=== PATIENT | female | born 1955 | race Caucasian/White ===

== ENCOUNTER 2019-05-02 10:59 | Outpatient (CLI) | payer SELFPAY ==
--- NOTE | 2019-05-02 10:56 | DI.RAD_ITS ---
SYMPTOM/DIAGNOSIS: PAIN RIGHT KNEE: A frontal image of the right knee reveals medial and lateral tibiofemoral joint space narrowing and periarticular hypertrophic spurring. The findings are consistent with severe DJD.
== END 2019-05-02 11:19 ==
PROVIDERS: Visit Provider Orthopaedic Surgery
DX: M17.11 Unilateral primary osteoarthritis, right knee (principal); M25.561 Pain in right knee
CPT/HCPCS: 73560

== ENCOUNTER → 2019-06-27 09:51 | Outpatient (BNVA) | payer MEDICARE, SELFPAY | PROVIDERS: PCP Internal Medicine; Visit Provider Orthopaedic Surgery | DX: M25.561 Pain in right knee (principal); M17.11 Unilateral primary osteoarthritis, right knee; Z98.890 Other specified postprocedural states | CPT/HCPCS: 99213 ==

== ENCOUNTER → 2019-07-25 12:58 | Outpatient (CLI) | payer MEDICARE, SELFPAY ==
--- NOTE | 2019-07-25 14:42 | W.PREOPHP ---
Assessment and Plan Assessment and plan (1) Primary osteoarthritis of right knee: Status: Chronic Assessment and plan: Plan: Patient met with [employer] who ordered an EKG. Patient does not have any current cardiac symptoms nor does she have any significant cardiac history. She does have an elevated BMI of [address] Singh's last note. However, Dr. Singh has previously had a through discussion with patient regarding her weight and increased risk of infection. Despite this risk patient wishes to proceed with surgery. Educated patient on surgery covering surgical technique via models, recovery process, benefits and risks including but not limited to risk of infection, blood clot, damage to soft tissue/blood vessels/nerves in detail. After discussion patient gives verbal understanding of risks and elects to proceed with scheduling surgery. Patient had opportunity to have questions answered to their satisfaction. They will contact office if issues arise. Patient will continue to be scheduled for right TKA with Dr. Singh. History of Present Illness Narrative: Ms. Hernández is a 64-year-old female who presents to clinic for pre-operative visit regarding scheduled right TKA with Dr. Singh. She is status post left TKA done at [facility] around 2008. Reports history of a fall last January which caused more severe onset of right knee pain. Pain is located over the lateral aspect of the knee and when severe feels like it radiates to her ankle. States that intensity of pain varies slightly based on her activity. Reports difficulty even doing housework. Has tried Tylenol and Ibuprofen which only helps to reduce the intensity of her pain. Occasionally the pain will be so severe she has difficulty sleeping. Reports the knee will also give out even when walking on flat surfaces. Denies any recent falls or injuries directly to her knee. She received an intraarticular injection which provided less than one month of pain relief. Due to her continued symptoms she was offered TKA and elected to proceed. Pertinent Surgical Information Reports severe nausea, vomiting and diarrhea after receiving IV morphine following one of her surgeries. In addition she experienced hallucinations with percocet approximately 40 years ago. Denies any issues with her medications following her right TKA. Denies past medical history of: Hypertension, stroke, cardiac issues, angina, asthma, COPD, sleep apnea, renal issues, liver issues, hepatitis, known gastrointestinal ulcers, hyperlipidemia, bleeding disorders, seizures, migraines, anxiety, depression, diabetes, autoimmune disorders Denies prior complications from surgery or anesthesia. Review of Systems Constitutional Constitutional: Denies fever(s), Denies frequent falls and Denies headache(s) Eyes Eyes: Denies change in vision ENT Ears, Nose, Mouth, and Throat: Denies dizziness, Denies ear discharge, Denies headache(s), Denies epistaxis, Denies nasal discharge and Denies sore throat Cardiovascular Cardiovascular: Denies chest pain, Denies rapid heart rate, Denies irregular heart rhythm, Denies lightheadedness, Denies palpitations, Denies dyspnea, Reports dyspnea on exertion (only on stairs or going uphills for years; denies any recent change ), Denies orthopnea, Denies paroxysmal nocturnal dyspnea and Denies slow heart rate Respiratory Respiratory: Denies cough, Denies dyspnea, Reports dyspnea on exertion (only on stairs or going uphills for years; denies any recent change ) and Denies wheezing Gastrointestinal Gastrointestinal: Denies abdominal pain, Denies melena, Denies hematochezia, Denies constipation, Denies diarrhea, Denies nausea and Denies vomiting Genitourinary Genitourinary: Denies hematuria, Denies dysuria and Denies urinary urgency Musculoskeletal Musculoskeletal: Reports as per HPI, Denies numbness and Denies tingling Neurologic Neurologic: Denies dizziness, Denies frequent falls, Denies headache(s), Denies numbness and Denies tingling Psychiatric Psychiatric: Denies anxiety and Denies depression Endocrine Endocrine: Denies palpitations Allergic/Immunologic Allergic/Immunologic: Denies wheezing [facility] Medical History (Updated 07/25/19 @ 14:53 by Dorothy Palmer) Cellulitis of left leg (Inactive) Hx of gastroesophageal reflux (GERD) (Acute) Streptococcal bacteremia (Inactive) Surgical History (Updated 07/25/19 @ 13:28 by Danelle Ham RN) History of arthroplasty of left knee (Acute) History of open reduction and internal fixation (ORIF) procedure (Acute) Right wrist Hx of cholecystectomy (Chronic) Hx of hysterectomy (Chronic) Hx of thyroidectomy (Chronic) Hx of vein stripping (Acute) Family History (Updated 07/25/19 @ 14:54 by Dorothy Palmer) Father Stroke Mother No problems noted. Social History (Updated 07/25/19 @ 14:55 by Dorothy Palmer) Smoking/Tobacco Use Status: Never Drug use: Never Do you feel safe in your relationship?: Yes Meds Home Medications and Allergies Home Medications Medication Instructions Recorded Confirmed Type multivitamin [Daily Multi-Vitamin] 1 ea PO DAILY NS 02/15/13 07/25/19 History naproxen sodium [Aleve] 220 mg PO PRN NS 02/15/13 07/25/19 History levothyroxine 200 mcg PO DAILY tab-cap 04/28/15 07/25/19 History omeprazole 20 mg PO DAILY 06/22/15 07/25/19 History magnesium oxide 400 mg PO DAILY #30 tab 08/13/16 07/25/19 Rx acetaminophen [Mapap Extra 1,000 mg PO PRN PRN 07/11/17 07/25/19 History Strength] cholecalciferol (vitamin D3) 1,000 1,000 unit PO DAILY 05/02/19 07/25/19 History unit capsule ibuprofen 200 mg capsule 800 mg PO Q6H PRN cap 06/27/19 07/25/19 History Allergies Allergy/AdvReac Type Severity Reaction Status Date / Time Sulfa (Sulfonamide Allergy Mild rash Unverified 07/25/19 14:55 Antibiotics) morphine AdvReac Severe nausea, Unverified 07/25/19 14:55 vomiting diarrhea Exam Const General: cooperative and no acute distress [facility] Head: normal to inspection, normocephalic and atraumatic Ears: external ears normal General nose exam: external nose normal and no nasal discharge Face and sinus: face symmetric Mouth: oral mucosae normal, lip normal, tongue normal and moist mucous membranes Teeth and gingiva: poor dentition (broken front tooth) Throat: posterior oropharynx normal Eyes General: appearance normal, both eyes and all related structures Pupils: PERRL EOM: EOM intact bilaterally Neck Neck: trachea midline Carotids: normal carotid upstroke Lymphatic: no lymphadenopathy noted Resp Effort & Inspection: normal respiratory effort and able to speak in complete sentences Auscultation: clear to auscultation bilaterally, no rales, no rhonchi and no wheezes Cardio Heart Sounds: S1 normal, S2 normal and no murmurs Pulses: radial pulses present bilaterally Skin General skin exam: no rashes or lesions noted Results Labs Result diagrams: 07/25/19 14:31
[2019-07-25 14:45] LABS: Abs Immature Grans 0.02 k/cumm (0.0-0.09); Absolute Basophil Count 0.02 k/cumm (0.0-0.2); Absolute Lymphocyte Count 1.69 k/cumm (1.2-3.4); Absolute Monocyte Count 0.44 k/cumm (0.11-0.7); Absolute Neutrophil Count 4.69 k/cumm (1.2-6.7); Basophils % 0.3; Eosinophils % 1.4; HCT 40.1 % (36.0-46.0); HGB 12.8 g/dL (12.0-15.5); Immature Grans % 0.3; Lymphocytes % 24.3; Mean Corp. HGB Concentration 31.9 g/dL (32.0-36.0); Mean Corpuscular Hemoglobin 28.8 pg (27.0-33.0); Mean Corpuscular Volume 90.3 fL (80-95); Mean Platelet Volume 9.6 fL (8.0-11.0); Monocytes % 6.3; Neutrophils % 67.4; Platelet Count 208 x1000/uL (130-400); RBC 4.44 m/cumm (4.00-5.20); RBC Distribution Width 14.9 % (11.7-14.6); White Blood Cell Count 6.96 k/cumm (4.4-10.8)
== END ==
PROVIDERS: PCP Internal Medicine; Visit Provider Orthopaedic Surgery
DX: M25.561 Pain in right knee (principal); M16.11 Unilateral primary osteoarthritis, right hip; Z01.812 Encounter for preprocedural laboratory examination; Z01.818 Encounter for other preprocedural examination; M17.11 Unilateral primary osteoarthritis, right knee
CPT/HCPCS: 36415; NC; 85025; 93005; 93010

== ENCOUNTER 2019-07-29 05:59 | Inpatient (IN) | payer MEDICARE, SELFPAY ==
[2019-07-25 13:04] VITALS: BP 147/84; PULSE 82; RESP 18; TEMP 36.6; O2SAT 93
[2019-07-25 13:36] VITALS: BP 147/84; PULSE 82; RESP 18; TEMP 36.6; O2SAT 93
[2019-07-29] VITALS (13 sets, daily range): BP systolic 108–153; BP diastolic 52–89; PULSE 57–87; RESP 12–20; TEMP 35.9–36.9; O2SAT 94–99
[2019-07-29] MEDS: Lactated Ringers 1,000 ML 80 ML IV ×2 (06:39→10:19)
[2019-07-29] MEDS: Bupivacaine LIPOSOME/PF 133 MG/10 ML VIAL IJ (07:22)
[2019-07-29] MEDS: Bupivacaine 0.5% Pres-Free 30 ML VIAL (07:22)
[2019-07-29] MEDS: ceFAZolin 2 GM/50 ML BAG IVPB (07:48)
[2019-07-29] MEDS: Hydrogen Peroxide 3% 480 ML BTL (09:29)
[2019-07-29] MEDS: fentaNYL 100 MCG/2 ML VIAL IVP ×2 (11:17→11:32)
--- NOTE | 2019-07-29 11:19 | DI.RAD_ITS ---
SYMPTOMS/DIAGNOSIS: CHECK TOTAL KNEE COMPONENTS RIGHT KNEE: The post operative examination reveals a right TKA. The components of which are in excellent position.
[2019-07-29] MEDS: HYDROcodone 5/Acetaminophen 325 TAB PO (12:23)
[2019-07-29] MEDS: oxyCODONE-CR 10 MG TABCR PO ×2 (12:24→23:42)
[2019-07-29] MEDS: POTASSIUM CHLORIDE/0.9% NACL 1,000 ML 125 MEQ IV ×2 (12:24→21:26)
[2019-07-29] MEDS: ceFAZolin 2,000 MG in Normal Saline 100 ML 200 MG IVPB ×3 (12:45→23:42)
[2019-07-29] MEDS: Docusate Sodium 100 MG CAP PO ×2 (14:19→20:00)
--- NOTE | 2019-07-29 15:13 | ROE_ITS ---
DATE OF PROCEDURE: July 29, 2019 PREOPERATIVE DIAGNOSIS: Osteoarthritis right knee. POSTOPERATIVE: Osteoarthritis right knee. PROCEDURE: Right total knee arthroplasty. COMPONENTS USED: 1. Size 2 posterior cruciate-retaining femoral component. 2. Size 2 tibial tray. 3. Size 2, 10 mm rotating platform curved insert. The patella was not resurfaced. ANESTHESIA: General, Aixa Porter CRNA SURGEON: Narayan Singh M.D. IP ARCHITECT: Tre Limon INDICATIONS: This is a 64-year-old white female with a BMI of 53 with endstage osteoarthritis of her right knee. She has reached the point where she is incapacitated with her activities of daily livin g because of pain from her right knee. She has previously undergone a successful left total knee rep lacement some ten years ago. Total knee replacement was recommended at this point because of failure of conservative treatment to control her pain. The risks and complications of the procedure were ex plained to the patient in detail preoperatively. PROCEDURE: The patient was taken to the Operating Room on 07/29/19. She was placed supine on the ope rating table and a general anesthetic was administered. Because of obesity, a femoral nerve block wa s not capable of being done. She instead had an adductor canal block. A proximal tourniquet was celso lied and the right lower extremity was then prepped and draped free in the usual sterile fashion. I made an anterior midline incision beginning at the tibial tubercle and extending 4 to 5 inches prox imal of the patella. Because of a combination of difficulty getting her blood pressure under control and the tourniquet, there was extensive venous back-bleeding. I therefore deflated the tourniquet a nd proceeded for the rest of the case without the tourniquet. The subcutaneous bleeders were cauteri zed. A medial parapatellar capsular incision was made. The patella was mobilized and everted and th e knee was hyperflexed. Medial and lateral meniscectomies were performed. The ACL was sacrificed. The distal femur was resected using intramedullary alignment guides and jigs. The patient was found to require a size 2 femoral component. Holes were drilled through the trial femoral component for th e lugs of the actual femoral component. The proximal tibia was then resected using external alignmen t guides and jigs. The posterior cruciate ligament was recessed. Using the guide for the tibial tra y, the keel and stem of the tibial tray were then reamed and punched out in proper rotation alignment . Peripheral osteophytes were then resected from the patella. I thought that the articular cartilag e of the patella was in fairly good condition and did not require resurfacing. At this point the proximal tibia was prepared for cementing with pulse irrigation lavage of saline so lution and drying with peroxide-soaked strip sponges. One batch of gentamicin-impregnated methylmeth acrylate was hand-packed onto the proximal tibia and then packed onto the posterior recess on the tib ial tray. The tibial tray was inserted and packed into place with the impactor and mallet. It was f urther pressurized using the trial components and extending the knee. Excess cement was trimmed from the margins of the tibial component while the cement was still soft. When the methylmethacrylate rodgers d cured, the trial components were removed. The distal femur was prepared for cementing with pulse i rrigation lavage of saline solution and drying with peroxide-soaked strip sponges. Another batch of gentamicin-impregnated methylmethacrylate was vacuum-mixed and hand-packed onto the prepared distal f emur and was pressurized by inserting the femoral component with the impactor and mallet and then put ting in the trial insert and extending the knee. Excess cement was trimmed from the margins of the f emoral component while the cement was still soft using the plastic cement removal tool. When the sec ond batch of methylmethacrylate had cured, the trial insert was removed. The posterior recesses were checked and any bone or cement debris was removed at this point. Using the trial tibial inserts, it was determined that a 10 mm insert allowed full extension and provided excellent varus/valgus stabil ity from 0 to 90 degrees of flexion. The actual rotating platform size 2, 10 mm thick insert was the n placed on the tibial tray and then reduced onto the femoral condyles. Patella tracking was checked using the [id number]-thumb and the patella tracked anatomically. The right knee was flexed over sof t goods and closure was begun. The knee joint capsule was infiltrated with 0.5% Marcaine with an epinephrine solution. I then used 0.5% Marcaine with an epinephrine solution to infiltrate the subcu. The quadriceps tendon and medial capsule of the knee were repaired with interrupted [id number] sutures of #1 Vicryl suture mater ial. The wound and knee were irrigated with Betadine and saline solution prior to closure. The Beta dine was allowed to stay for a minute before suctioning. The subcu was approximated with interrupted #2-0 Vicryl sutures and the skin edges were approximated, without tension, using [id number] s utures, interrupted, of #3-0 Nylon suture material. The knee was dressed with Xeroform gauze, ster ile gauze 4x4's, ABD pads and wrapped with a Kerlix bandage and then a Rocha compressive dressing was applied from toes to groin. A mobilizer splint was placed over the compressive dressing to maintain the knee in extension. One gram of tranexamic acid was administered IV prior to inflating the tourn iquet and then a second gram of tranexamic acid was given IV when the skin had been closed. The dirk ent's anesthesia was reversed without complications. She was discharged to the recovery room. Estim ated blood loss 300 cc's. She experienced no intraoperative complications.
[2019-07-29] MEDS: Acetaminophen 325 MG TAB 650 MG PO (15:49)
[2019-07-29] MEDS: Ketorolac 30 MG/ML VIAL IVP ×2 (15:50→21:26)
--- NOTE | 2019-07-29 18:00 | IN_ITS ---
Date of service: 07/29/19 Time of Service: 15:01 PT Notes Inpatient Physical Therapy Evaluation Date: 07/29/2019 Referring Doctor: Narayan Singh MD PT Orders: PT CONSULT: Eval/Treat Precautions: Fall. Standard. WBAT on R LE. Patient Profile/Admitting Diagnosis: Patient is a 64-year-old female with primary unilateral osteoarthritis of right knee and is status post right total knee arthroplasty on postoperative day 0. PMHX: Medical History (Updated 07/25/19 @ 14:53 by Dorothy Palmer) Cellulitis of left leg (Inactive) Hx of gastroesophageal reflux (GERD) (Acute) Streptococcal bacteremia (Inactive) Surgical History (Updated 07/25/19 @ 13:28 by Danelle Ham RN) History of arthroplasty of left knee (Acute) History of open reduction and internal fixation (ORIF) procedure (Acute) Right wrist Hx of cholecystectomy (Chronic) Hx of hysterectomy (Chronic) Hx of thyroidectomy (Chronic) Hx of vein stripping (Acute) Social History/Home Situation: Patient lives with in a one-floor house with 4 steps to enter and a rail on the R going up. Her granddaughter who lives with her does the grocery shopping and helps with director of recreation therapy. 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 She is independent with all aspect sof ADLs without the need for an assistive ambulatory device nor adaptive equipment. Equipment Owned/DME: [employer] Subjective: Patient is agreeable to a PT consult. She reports signficant pain on surgical site that worsens with weight bearing and movement. She denies headache and chest pain but did report being nauseous and vomitted x2 during mobility assessment. She had a difficult time backing up onto bed and had to be assisted by this PT, student PT, and nurse for sit to supine. Objective: General Observation: Patient seen resting in bed. IV in the left UE. Pretty catheter in place. Rocha stress dressing in place. Knee immobilizer in place. Mental Status: Alert and oriented as to person, place, time, and purpose Pain: 7/10 at rest, 10/10 with movement Vital Signs: Patient tested negative for orthostatic hypotension. ROM: Right Upper Extremity: Shoulder Flexion WFL. Shoulder abduction WFL. Elbow flexion WFL. Wrist flexion WFL. Opening and closing of hand WFL. Left Upper Extremity: Shoulder Flexion WFL. Shoulder abduction WFL. Elbow flexion WFL. Wrist flexion WFL. Opening and closing of hand WFL. Right Lower Extremity: Hip flexion unable to perform due to pain and added weight of Rocha dressing and knee immobilizer. Patient unable to slide right LE sideways due to pain. Knee flexion not tested due to presence of Rocha dressing, DWAINE wraps, and knee immobilizer. Ankle dorsiflexion WFL. Ankle plantarflexion WFL. Left Lower Extremity: Hip flexion WFL. Hip abduction WFL. Knee flexion WFL. Ankle dorsiflexion WFL. Ankle plantarflexion WFL. Strength: Right Upper Extremity: Shoulder flexors 5/5. Shoulder abductors 5/5. Elbow flexors 5/5. Elbow extensors 4/5. Service Engineer strong. Left Upper Extremity: Shoulder flexors 5/5. Shoulder abductors 5/5. Elbow flexors 5/5. Elbow extensors 4/5. Service Engineer strong. Right Lower Extremity: Hip flexors 1/5. Hip abductors 1/5. Knee flexors 1/5. Knee extensors 1/5. Ankle dorsiflexors 4/5. Ankle plantarflexors 4/5. Left Lower Extremity:Hip flexors 5/5. Hip abductors 5/5. Knee flexors 5/5. Knee extensors 5/5. Ankle dorsiflexors 5/5. Ankle plantarflexors 5/5. Sensation: Intact as to pain and pressure on bilateral lower extremities. Bed Mobility/Transfers: Rolling minimal assist Supine to sit minimal assist Sit to supine minimal assist Sit to stand moderate assist Stand to sit moderate assist Bed to chair moderate assist Chair to bed maximum assist Gait: Patient was only able to tolerate 6 steps from bedside forward using FWW with WBAT on right requiring minimal assist of 2 with significant pain reported at 10/10 on the right knee. Absent knee flexion on right due to edema but knee immobilizer and unable to extend right hip due to pain Balance: Static Sitting: Good Dynamic Sitting: Fair Static Standing: Fair Dynamic Standing: Poor Special Tests: Mobility Limitations Standardized Measure [facility] AM-PAC 6 clicks Basic Mobility Inpatient Short Form: Raw Score: 11 CMS Score: 73% deficit Informed Consent/Education: Patient instructed in purpose of PT consult and plan of care. Assessment: Patient is a 64-year-old female with premorbid independent mobility level status post right total knee arthroplasty on postoperative day 0. She currently is limited by pain. Sensation to her right LE intact. Strength and range of motion assessed as above. Patient presents with clinical signs and symptoms consistent with current/admitting diagnoses that have resulted to mobility limitations, gait instability, generalized weakness, and impairment of motor control as demonstrated by the following impairment level findings: 1. Decreased strength to R LE major muscle groups 2. Impaired sitting/standing balance 3. Impaired activity tolerance 4. Limitation of joint range of motion in right hip and right knee joints Impairments are contributing to the following functional limitations: 1. Dependent bed mobility skills 2. Increased dependence with transfers 3. Inability to safely ambulate without assistive device and physical assistance 4. Increase completion time for mobility ADL performance 5. Increased fall risk 6. Inability to negotiate steps alone safely Patient is assessed as a 68541 moderate complexity based on the following: History: Significant for left TKA and right wrist ORIF Examination: Demonstrable impairment in strength, balance, and range of motion with underlying impairments and functional limitations as documented above Presentation:Evolving Decision Makin moderate complexity Goals: Goals X1 week 1. Supine-Sit independent 2. Sit-Supine independent 3. Sit-Stand independent 4. Stand-Sit independent 5. Bed-Chair independent 6. Chair-Bed independent 7. Independent gait on level surface with use of least restrictive device for at least 300 feet without report of pain nor dyspnea 8. Independent stair negotiation while holding onto bilateral rails for at least 4 steps without report of pain nor dyspnea 9. Independent with home exercise program 10. Good static and dynamic standing balance/tolerance Plan of Care/Treatment Plan: 1-2x/day, 7 days/week x 1 week. Plan of care has been reviewed with the SURGICAL DENTAL ASSISTANT providing the service under Physical Therapy direction. Initiate Physical Therapy intervention for strengthening, bed mobility, transfers, gait, stairs, balance training, use of assistive device. DISCHARGE RECOMMENDATIONS: Patient will benefit from fci facility placement in order to progress mobility level, strength, and balance in preparation for a safe discharge to home. Patient will benefit from using FWW in order to maximize functional independence at discharge destination. TREATMENT CODE/TIME: 38446 x 30 minutes, 17704 x 21 minutes beginning at 15:01 PM. Thank you very much for this referral. Tierra Prather PT, DPT, CLT [facility]
[2019-07-29] MEDS: Normal Saline Flush 10 ML SYR IVP ×2 (21:27→23:42)
[2019-07-30 03:27] VITALS: BP 108/58; PULSE 78; RESP 19; TEMP 37.3; O2SAT 94
[2019-07-30] MEDS: Ketorolac 30 MG/ML VIAL IVP ×4 (03:37→21:36)
[2019-07-30] MEDS: Normal Saline Flush 10 ML SYR IVP ×4 (03:38→21:37)
[2019-07-30] MEDS: ceFAZolin 2,000 MG in Normal Saline 100 ML 200 MG IVPB (06:22)
[2019-07-30] MEDS: Levothyroxine 200 MCG TAB PO (06:22)
[2019-07-30 07:05] LABS: HCT 33.5 % (36.0-46.0); HGB 10.5 g/dL (12.0-15.5); Mean Corp. HGB Concentration 31.3 g/dL (32.0-36.0); Mean Corpuscular Hemoglobin 28.8 pg (27.0-33.0); Mean Corpuscular Volume 91.8 fL (80-95); Mean Platelet Volume 10.3 fL (8.0-11.0); Platelet Count 187 x1000/uL (130-400); RBC 3.65 m/cumm (4.00-5.20); RBC Distribution Width 14.9 % (11.7-14.6)
[2019-07-30 07:55] VITALS: BP 99/63; PULSE 72; RESP 18; TEMP 36.7; O2SAT 96
[2019-07-30] MEDS: Cholecalciferol (Vitamin D3) 1,000 UNIT TAB 1000 UNITS PO (08:24)
[2019-07-30] MEDS: Acetaminophen 325 MG TAB 650 MG PO ×2 (08:24→18:10)
[2019-07-30] MEDS: Pantoprazole 40 MG TABCR PO (08:24)
[2019-07-30] MEDS: Magnesium Oxide 400 MG TAB PO (08:24)
[2019-07-30] MEDS: HYDROcodone 5/Acetaminophen 325 TAB PO ×2 (08:24→15:00)
[2019-07-30] MEDS: Multivitamin w/Minerals TAB 1 TAB PO (08:24)
[2019-07-30] MEDS: Enoxaparin 40 MG/0.4 ML SYR SC (11:25)
[2019-07-30] MEDS: oxyCODONE-CR 10 MG TABCR PO (11:25)
[2019-07-30 11:38] VITALS: BP 104/64; PULSE 71; RESP 16; TEMP 37.6; O2SAT 94
[2019-07-30] MEDS: POTASSIUM CHLORIDE/0.9% NACL 1,000 ML 60 MEQ IV (12:06)
--- NOTE | 2019-07-30 12:33 | PT.INTREAT ---
Date of service: 07/30/19 Time of Service: 12:33 PT Notes Inpatient Physical Therapy Treatment Note [facility] Date: 07/30/19 PRECAUTIONS: Fall, WBAT R SUBJECTIVE: Sofia states that she was having some discomfort from the knee immobilizer while sitting up in the chair. OBJECTIVE: PAIN: Patient c/o superior patellar pain with ther ex and gait training BED MOBILITY/TRANSFERS Supine-sit: S with HOB flat Sit-stand: SBA Stand-sit: SBA GAIT Assistive Device: FWW Weight bearing: WBAT R Assist: CGA Distance: 10' x2 in a.m.; 20' in p.m. Deviation: Standing rest x3 in a.m. and standing rest x1 in p.m.; increased knee pain and decreased step length and height in both a.m. and p.m. THEREX: Patient completed a LE strengthening and stabilization program, in a supine position in a.m. and long sit position in p.m. with Rocha dressing intact, as per flow sheet. She requires assist for SLR, hip abduction, and heel slide exercises in a.m and assist for SLR in p.m. ASSESSMENT: Patient tolerated session with complaints of R knee pain with ther ex and gait training. Patient was able to tolerate a progression in gait distance with FWW support and CGA, although requires frequent standing rests due to increased knee pain. Patient would benefit from continued gait and transfer training for improved mobility and activity tolerance. PLAN: Continue with PT's POC TREATMENT CODE/TIME: Session 1: 30 minutes; 16152, 52399 Session 2: 25 minutes; 52542, [id number]
--- NOTE | 2019-07-30 14:13 | INITIAL_ITS ---
- If Service Date Differs Date of service: 07/30/19 Time of Service: 14:13 Care Management Initial Assess REASON FOR HOSPITALIZATION:: OA R Knee PAST MEDICAL HISTORY/PAST SURGICAL HISTORY:: Medical History. Cellulitis of left leg (Inactive). Hx of gastroesophageal reflux (GERD) (Acute). Streptococcal bacteremia (Inactive). Surgical History. History of arthroplasty of left knee (Acute). History of open reduction and internal fixation (ORIF) procedure (Acute). Right wrist. Hx of cholecystectomy (Chronic). Hx of hysterectomy (Chronic). Hx of thyroidectomy (Chronic). Hx of vein stripping (Acute) PREVIOUS FUNCTIONAL STATUS/SOCIAL/FAMILY SUPPORTS:: Sofia lives at home in [place] with her granddaughter, Sheba. Her daughter, Danelle, lives in the area as well. Her in May 2018 following an illness. She helps care for her mother, who lives [facility] in [place], [place]. She is independent at baseline and does not receive any services currently. CURRENT FUNCTIONAL STATUS:: Sofia was sitting up in her chair with her legs propped up during the conversation with CM. She stated that her pain was between a 5 and 6 out of 10. She also reported that the nurse had just given her pain medication. She said that she didn't sleep well. She also reported that she has some concerns about going home too early because of her pain and also because she has four stairs at home that she will need to be able to maneuver. She stated that she worked with PT today and it was difficult for her. CM asked if she was aware of her plan of care, which she responded that she would go home when she was cleared by Dr. Singh. CM asked if she anticipates needing any services at home upon discharge, such as MOW, which she declined. CM will continue to follow. ADVANCE DIRECTIVES:: None on file. Sofia is not interested in filling one out at this time. Has patient been provided with information about the portal?: Yes Did the patient sign up for the portal?: Yes (CM initiated sign up) CODE STATUS:: Full Code INSURANCE COVERAGE / FINANCIAL ISSUES:: ADENIKE/MCR CURRENT HOME/COMMUNITY SERVICES/EQUIPMENT:: Sofia has a 4WW at home and a FWW in storage that she can have retrieved if needed. CM advised that PT will make a recommendation and may want to see the appropriate walker prior to discharge. PRIMARY CARE PHYSICIAN:: Onel Reynoso POTENTIAL DISCHARGE NEEDS:: Evaluations for further needs, follow up appointments. PATIENT/FAMILY EDUCATION NEEDS:: Review of community based supports, discharge plan, discussion of self care needs upon discharge, including Ask Me Three. ANTICIPATED BARRIERS TO DISCHARGE:: Sofia expressed concerns about being able to maneuver her stairs at home. She will work with PT to strengthen in order to feel confident upon discharge. TRANSPORTATION:: Sofia will be driven home by her daughter, Danelle, via private vehicle. PLAN:: Anticipate Sofia will return home when medically ready. She has her own FWW, which will be evaluated by PT before discharge. She will be transported home via private vehicle driven by her daughter, Danelle. She will follow up with outpatient PT. CM will follow.
--- NOTE | 2019-07-30 14:22 | W.PM.PROGNOT ---
Date of Service Date of service: 07/30/19 Time of Service: 14:22 Assessment and Plan Assessment and plan (1) Status post total knee replacement, right: Status: Acute Assessment and plan: Assessment: Stable postop day #1 right total knee replacement. Despite her obesity her mobility is quite good. Plan: DC Pretty. Continue to mobilize with PT per protocol. PT will remove her Rocha dressing tomorrow start active range of motion of her right knee. Subjective Subjective Interval history since last seen: She basically only has pain when she is weightbearing. At rest the scheduled pain meds control her pain. She would like to get her Pretty out. Exam Narrative Exam Narrative: She sitting in the chair. She has good active dorsiflexion and plantarflexion of her right foot. She has good sensation to her toes. She transfers with really minimal assist. She has been able to walk from her bed to the doorway and back. She is eating and drinking well and her TERESE's are good. Hemoglobin 10.5 g this morning. Objective Objective Clinical Data: Abnormal lab results 07/30/19 Range/Units 06:10 RBC 3.65 L (4.00-5.20) m/cumm Hgb 10.5 L (12.0-15.5) g/dL Hct 33.5 L (36.0-46.0) % MCHC 31.3 L (32.0-36.0) g/dL RDW 14.9 H (11.7-14.6) % Vital Signs Temperature 37.6 C H 07/30/19 11:38 Temperature Source Tympanic 07/30/19 11:38 Pulse 71 07/30/19 11:38 Pulse Rhythm Regular 07/30/19 09:31 Respiratory Rate 16 07/30/19 11:38 Respiratory Effort Non-Labored 07/30/19 09:31 Respiratory Depth Normal 07/30/19 09:31 Respiratory Pattern Normal 07/30/19 09:31 Blood Pressure 104/64 07/30/19 11:38 Pulse Oximetry 94 L 07/30/19 11:38 Respiratory End-tidal CO2 32 07/29/19 11:43 Oxygen Delivery Method Room Air 07/30/19 11:38 Oxygen Flow Rate 0 07/30/19 11:38 Pain Level 5 07/30/19 12:06 Intake & Output 07/29/19 07/30/19 07/30/19 23:59 11:59 23:59 Intake Total 1954.667 / 2354.667 2190 / 2190 Output Total 400 / 850 800 / 800 Balance 1554.667 / 2633.283 1691 / 1390 -800 / 1390 Intake: IV 1474.667 / 1186.132 5004 / 1200 Oral 480 / 510 990 / 990 Output: Urine 400 / 500 800 / 800 Other: Urine Color Yellow Light Shima Brown Urine Appearance Clear Clear Clear Comment RN requested bladder scan, Pt stated she felt she still had to pee even with cath in Stool Size Copious Stool Characteristics Soft Laboratory Results WBC 7.30 k/cumm (4.4-10.8) 07/30/19 06:10 RBC 3.65 m/cumm (4.00-5.20) L 07/30/19 06:10 Hgb 10.5 g/dL (12.0-15.5) L 07/30/19 06:10 Hct 33.5 % (36.0-46.0) L 07/30/19 06:10 MCV 91.8 fL (80-95) 07/30/19 06:10 MCH 28.8 pg (27.0-33.0) 07/30/19 06:10 MCHC 31.3 g/dL (32.0-36.0) L 07/30/19 06:10 RDW 14.9 % (11.7-14.6) H 07/30/19 06:10 Plt Count 187 x1000/uL (130-400) 07/30/19 06:10 MPV 10.3 fL (8.0-11.0) 07/30/19 06:10
--- NOTE | 2019-07-30 14:39 | CHAPLAIN ---
Sofia was sitting up in her chair when I visited. She told me about her knee surgery, after having her left knee replaced several years ago. She said the recovery pain is more than she remembered from her last surgery, but she fell and had cause more damage to this knee, she said. She is missing her cats at home and hopes she can be discharged home and not go to a SNF. Her twentysomething year old granddaughter lives with her. Sofia was proud to tell me that she'd walked across her room today using a walker.
[2019-07-30 16:11] VITALS: BP 116/65; PULSE 75; RESP 18; TEMP 36.3; O2SAT 97
[2019-07-30 19:35] VITALS: O2SAT 97
[2019-07-30 21:24] VITALS: BP 115/62; PULSE 78; RESP 19; TEMP 37.5; O2SAT 94
[2019-07-31] VITALS (7 sets, daily range): BP systolic 109–138; BP diastolic 64–78; PULSE 70–78; RESP 18–20; TEMP 36.4–37.7; O2SAT 94–97
[2019-07-31] MEDS: oxyCODONE-CR 10 MG TABCR PO ×2 (00:27→12:59)
[2019-07-31] MEDS: Acetaminophen 325 MG TAB 650 MG PO (01:40)
[2019-07-31] MEDS: Ketorolac 30 MG/ML VIAL IVP (03:53)
[2019-07-31] MEDS: Normal Saline Flush 10 ML SYR IVP ×2 (03:53→17:35)
[2019-07-31] MEDS: Levothyroxine 200 MCG TAB PO (05:47)
[2019-07-31 07:12] LABS: HCT 29.8 % (36.0-46.0); HGB 9.2 g/dL (12.0-15.5); Mean Corp. HGB Concentration 30.9 g/dL (32.0-36.0); Mean Corpuscular Hemoglobin 28.5 pg (27.0-33.0); Mean Corpuscular Volume 92.3 fL (80-95); Mean Platelet Volume 10.3 fL (8.0-11.0); Platelet Count 148 x1000/uL (130-400); RBC 3.23 m/cumm (4.00-5.20); RBC Distribution Width 14.8 % (11.7-14.6); White Blood Cell Count 5.95 k/cumm (4.4-10.8)
[2019-07-31] MEDS: Cholecalciferol (Vitamin D3) 1,000 UNIT TAB 1000 UNITS PO (09:30)
[2019-07-31] MEDS: Pantoprazole 40 MG TABCR PO (09:30)
[2019-07-31] MEDS: Multivitamin w/Minerals TAB 1 TAB PO (09:30)
[2019-07-31] MEDS: Docusate Sodium 100 MG CAP PO ×3 (09:30→19:47)
[2019-07-31] MEDS: Magnesium Oxide 400 MG TAB PO (09:30)
[2019-07-31] MEDS: HYDROcodone 5/Acetaminophen 325 TAB PO ×3 (09:47→21:42)
--- NOTE | 2019-07-31 12:21 | PT.INTREAT ---
Date of service: 07/31/19 Time of Service: 12:22 PT Notes Inpatient Physical Therapy Treatment Note [facility] Date: 07/31/19 PRECAUTIONS: Fall, WBAT R SUBJECTIVE: Sofia states that she had a moment of unsteadiness this morning when transferring off of the commode. She reports that she has had some increase in pain in her R knee since then, but it is tolerable. OBJECTIVE: PAIN: Patient c/o R knee pain with ther ex and gait training BED MOBILITY/TRANSFERS Supine-sit: S with HOB flat Sit-supine: Min A with HOB flat Sit-stand: SBA Stand-sit: SBA GAIT Assistive Device: FWW Weight bearing: WBAT R Assist: SBA Distance: 40' in a.m.; 40' in p.m. Deviation: Standing rest x3 in a.m.; increased knee pain and decreased step length and height in both a.m. and p.m.; increased pacing with cueing in p.m. THEREX: Patient completed a LE strengthening and stabilization program, in a supine position in a.m. and long sit position in p.m. without Rocha dressing intact, as per flow sheet. She requires assist for SLR, hip abduction, and heel slide exercises. REMOVAL OF ROCHA: No redness, blistering, or abnormal sensitivity. Replaced by nursing with Mepilex dressing and DWAINE wraps. ASSESSMENT: Patient tolerated session with complaints of R knee pain with ther ex and gait training. Patient was able to tolerate a progression in gait distance with FWW support and SBA, although requires frequent standing rests due to increased knee pain. Patient would benefit from continued gait and transfer training for improved mobility and activity tolerance. PLAN: Continue with PT's POC TREATMENT CODE/TIME: Session 1: 45 minutes; 39014 x2, [id number] Session 2: 30 minutes; [id number], [id number]
[2019-07-31] MEDS: Enoxaparin 40 MG/0.4 ML SYR SC (12:57)
--- NOTE | 2019-07-31 15:31 | CMPROGNOTE_ITS ---
- If Service Date Differs Date of service: 07/31/19 Time of Service: 15:31 Care Management Progress Note S/O: Sofia was sitting up in her chair during the conversation with CM. She was pleasant and engaging. She stated that she was able to move around more today with PT. She was happy that her herrera catheter was removed and she is able to go to the bathroom on her own. She reported that she is still anxious about getting up the four stairs to get in her house, but that she is motivated to work hard with PT in order to return home soon. CM will continue to follow. A: Sofia is a 64 year old Female at [facility] for a total Right knee replacement on 07/29/2019. P: CM anticipates Sofia will return home with new orders for HH PT-vs-short term SNF if she unable to complete stair training with PT per MD. CM will coordinate DME needs, as PT is recommending a FWW. CM will continue to support discharge planning.
--- NOTE | 2019-07-31 16:06 | W.PM.PROGNOT ---
Date of Service Date of service: 07/31/19 Time of Service: 16:06 Assessment and Plan Assessment and plan (1) Status post total knee replacement, right: Status: Acute Assessment and plan: Assessment: Making good progress at 48 hours postop right total knee replacement. In fact, I think that she will be able to be discharged from the hospital directly to home. Plan: Continue to mobilize with physical therapy. Plan home discharge when fully independent. Subjective Subjective Interval history since last seen: She is very happy with her progress. She feels that she is going to be able to go from the hospital to home on discharge. Although she has pain in her right knee with ambulation is well controlled with her medicines. And the pain goes away as soon she gets off her feet. She has been able to urinate since the Pretty was DC'd. Exam Narrative Exam Narrative: Her incision is clean and dry. She still cannot quite do a straight leg raise actively yet. She can transfer with minimal assist. She is walking well with a walker. She is easily flex and 60 degrees. Hemoglobin is 9.2 g today. She is normotensive today. Objective Objective Clinical Data: Abnormal lab results 07/31/19 Range/Units 06:28 RBC 3.23 L (4.00-5.20) m/cumm Hgb 9.2 L (12.0-15.5) g/dL Hct 29.8 L (36.0-46.0) % MCHC 30.9 L (32.0-36.0) g/dL RDW 14.8 H (11.7-14.6) % Vital Signs Temperature 36.9 C 07/31/19 11:43 Temperature Source Tympanic 07/31/19 11:43 Pulse 78 07/31/19 11:43 Pulse Rhythm Regular 07/31/19 15:38 Respiratory Rate 18 07/31/19 11:43 Respiratory Effort Non-Labored 07/31/19 15:38 Respiratory Depth Normal 07/31/19 15:38 Respiratory Pattern Normal 07/31/19 15:38 Blood Pressure 111/68 07/31/19 11:43 Pulse Oximetry 94 L 07/31/19 11:43 Respiratory End-tidal CO2 32 07/29/19 11:43 Oxygen Delivery Method Room Air 07/31/19 11:43 Oxygen Flow Rate 0 07/31/19 11:43 Pain Level 6 07/31/19 16:00 Intake & Output 07/30/19 07/31/19 07/31/19 23:59 11:59 23:59 Intake Total 210 / 2400 460 / 460 Output Total 1500 / 1500 200 / 200 Balance -1290 / 900 260 / 260 Intake: IV 210 / 1410 Oral 460 / 460 Output: Urine 1500 / 1500 200 / 200 Other: Urine Color Yellow Yellow Yellow Urine Appearance Clear Clear Clear Urine Odor Normal None Normal Stool Size Small Stool Characteristics Soft Voiding Methods Bedside Commode Bedside Commode Bedside Commode Laboratory Results WBC 5.95 k/cumm (4.4-10.8) 07/31/19 06:28 RBC 3.23 m/cumm (4.00-5.20) L 07/31/19 06:28 Hgb 9.2 g/dL (12.0-15.5) L 07/31/19 06:28 Hct 29.8 % (36.0-46.0) L 07/31/19 06:28 MCV 92.3 fL (80-95) 07/31/19 06:28 MCH 28.5 pg (27.0-33.0) 07/31/19 06:28 MCHC 30.9 g/dL (32.0-36.0) L 07/31/19 06:28 RDW 14.8 % (11.7-14.6) H 07/31/19 06:28 Plt Count 148 x1000/uL (130-400) 07/31/19 06:28 MPV 10.3 fL (8.0-11.0) 07/31/19 06:28
--- NOTE | 2019-07-31 16:15 | NUR.NOTE ---
Nursing Note: Patients hair was combed out today, there were nits that were removed from her hair today, no live lice were noted
[2019-07-31] MEDS: Celecoxib 200 MG CAP PO (19:47)
[2019-08-01] MEDS: oxyCODONE-CR 10 MG TABCR PO ×3 (00:05→23:26)
[2019-08-01] MEDS: HYDROcodone 5/Acetaminophen 325 TAB PO ×3 (04:02→19:27)
[2019-08-01] MEDS: Levothyroxine 200 MCG TAB PO (06:38)
[2019-08-01 07:28] VITALS: BP 119/76; PULSE 78; RESP 18; TEMP 36.6; O2SAT 97
[2019-08-01] MEDS: Magnesium Oxide 400 MG TAB PO (08:12)
[2019-08-01] MEDS: Multivitamin w/Minerals TAB 1 TAB PO (08:12)
[2019-08-01] MEDS: Cholecalciferol (Vitamin D3) 1,000 UNIT TAB 1000 UNITS PO (08:13)
[2019-08-01] MEDS: Pantoprazole 40 MG TABCR PO (08:13)
[2019-08-01] MEDS: Docusate Sodium 100 MG CAP PO ×3 (08:13→19:27)
[2019-08-01] MEDS: Celecoxib 200 MG CAP PO ×2 (08:13→19:27)
[2019-08-01] MEDS: Normal Saline Flush 10 ML SYR IVP (08:15)
[2019-08-01 11:33] VITALS: BP 118/71; PULSE 78; RESP 18; TEMP 37; O2SAT 94
--- NOTE | 2019-08-01 11:53 | PT.INTREAT ---
Date of service: 08/01/19 Time of Service: 11:53 PT Notes Inpatient Physical Therapy Treatment Note [facility] Date: 08/01/19 PRECAUTIONS: Fall, WBAT R SUBJECTIVE: Sofia states that she has not been using her knee immobilizer when getting out of bed to use the commode at night. She mentions that she has noticed significant discomfort following the transfers without using the knee immobilizer. We discussed the importance of using the knee immobilizer until her R LE is strong enough to support her during weight bearing activities. OBJECTIVE: PAIN: Patient c/o R knee pain with gait training BED MOBILITY/TRANSFERS Supine-sit: I Sit-stand: S Stand-sit: S GAIT Assistive Device: FWW Weight bearing: WBAT R Assist: SBA Distance: 20' in a.m.; 50' in p.m. Deviation: Decreased step length and height THEREX: Patient completed a LE strengthening and stabilization program, in a long sit position, as per flow sheet. She requires assist for SLR exercise. Ends with cryocuff to R knee. STAIRS: Up/down 2x6 using B rails and a step-to pattern with supervision in a.m.; up/down 4x6 using B rails and a step-to pattern with supervision in p.m. ASSESSMENT: Patient tolerated session with complaints of R knee pain with gait training. Patient was able to tolerate the addition of stair training, well requiring supervision only, and minimal cueing for sequence. Patient would benefit from continued gait and transfer training for improved mobility and activity tolerance. PLAN: Continue with PT's POC TREATMENT CODE/TIME: Session 1: 25 minutes; [id number], [id number] Session 2: 35 minutes; [id number], [id number]
[2019-08-01] MEDS: Enoxaparin 40 MG/0.4 ML SYR SC (13:11)
[2019-08-01 15:30] VITALS: BP 122/64; PULSE 78; RESP 18; TEMP 36.5; O2SAT 97
--- NOTE | 2019-08-01 16:08 | PDOC.CMPRO ---
- If Service Date Differs Date of service: 08/01/19 Time of Service: 16:08 Care Management Progress Note S/O: Sofia was sitting up in her chair during the conversation with CM. She was pleasant and engaging. She stated that she was able to move around more today with PT and that she is feeling stronger. She is motivated to work hard with PT in order to return home soon. CM will continue to follow. A: Sofia is a 64 year old Female at [facility] for a total Right knee replacement on 07/29/2019. P: CM anticipates Sofia will return home with new orders for PT. CM is coordinating DME needs, as PT is recommending a FWW. Sofia will be transported home via private vehicle driven by her daughter, Danelle. CM will continue to support discharge planning.
[2019-08-01 20:20] VITALS: O2SAT 97
[2019-08-01 21:24] VITALS: BP 117/60; PULSE 76; RESP 16; TEMP 37; O2SAT 95
[2019-08-02] MEDS: HYDROcodone 5/Acetaminophen 325 TAB PO ×2 (03:01→08:37)
[2019-08-02] MEDS: Levothyroxine 200 MCG TAB PO (05:21)
[2019-08-02 07:40] VITALS: BP 119/72; PULSE 104; RESP 18; TEMP 36.5; O2SAT 95
[2019-08-02] MEDS: Celecoxib 200 MG CAP PO (08:36)
[2019-08-02] MEDS: Normal Saline Flush 10 ML SYR IVP (08:36)
[2019-08-02] MEDS: Cholecalciferol (Vitamin D3) 1,000 UNIT TAB 1000 UNITS PO (08:37)
[2019-08-02] MEDS: Docusate Sodium 100 MG CAP PO ×2 (08:37→13:17)
[2019-08-02] MEDS: Pantoprazole 40 MG TABCR PO (08:37)
[2019-08-02] MEDS: Magnesium Oxide 400 MG TAB PO (08:37)
[2019-08-02] MEDS: Multivitamin w/Minerals TAB 1 TAB PO (08:37)
--- NOTE | 2019-08-02 09:01 | W.PM.PROGNOT ---
Date of Service Date of service: 08/01/19 Time of Service: 12:01 Assessment and Plan Assessment and plan (1) Status post total knee replacement, right: Status: Acute Assessment and plan: Assessment: Continue progress following right total knee replacement. She should be ready to go home tomorrow. Plan: Discharge home tomorrow. Will have home health PT follow her. She will follow-up with me in 2-week. Subjective Subjective Patient reports: no new complaints Interval history since last seen: She wants to go home tomorrow. She will have help. She wants home health PT. Exam Narrative Exam Narrative: She is afebrile vital signs are stable. She can almost straight leg raise. Her incision is benign. She is now flexing 81 degrees. She is independent with ambulation including stairs which she did today. Objective Objective Clinical Data: Vital Signs Temperature 36.5 C 08/02/19 07:40 Temperature Source Tympanic 08/02/19 07:40 Pulse 104 H 08/02/19 07:40 Pulse Rhythm Regular 08/02/19 02:53 Respiratory Rate 18 08/02/19 07:40 Respiratory Effort Non-Labored 08/02/19 02:53 Respiratory Depth Normal 08/02/19 02:53 Respiratory Pattern Normal 08/02/19 02:53 Blood Pressure 119/72 08/02/19 07:40 Pulse Oximetry 95 08/02/19 07:40 Respiratory End-tidal CO2 32 07/29/19 11:43 Oxygen Delivery Method Room Air 08/02/19 07:40 Oxygen Flow Rate 0 08/02/19 07:40 Pain Level 7 08/02/19 07:40 Intake & Output 08/01/19 08/01/19 08/02/19 11:59 23:59 11:59 Intake Total 870 / 870 400 / 400 Output Total 850 / 3100 2250 / 3100 1550 / 1550 Balance 20 / -2230 -2250 / -2230 -1150 / -1150 Intake: Oral 870 / 870 400 / 400 Output: Urine 850 / 3100 2250 / 3100 1550 / 1550 Other: Urine Color Yellow Yellow Yellow Urine Appearance Clear Clear Clear Urine Odor Normal Normal Normal Stool Size Large Stool Characteristics Soft Formed Voiding Methods Bedside Commode Bedside Commode Bedside Commode Laboratory Results WBC 5.95 k/cumm (4.4-10.8) 09/18/19 06:28 RBC 3.23 m/cumm (4.00-5.20) L 07/31/19 06:28 Hgb 9.2 g/dL (12.0-15.5) L 07/31/19 06:28 Hct 29.8 % (36.0-46.0) L 07/31/19 06:28 MCV 92.3 fL (80-95) 07/31/19 06:28 MCH 28.5 pg (27.0-33.0) 07/31/19 06:28 MCHC 30.9 g/dL (32.0-36.0) L 07/31/19 06:28 RDW 14.8 % (11.7-14.6) H 07/31/19 06:28 Plt Count 148 x1000/uL (130-400) 07/31/19 06:28 MPV 10.3 fL (8.0-11.0) 07/31/19 06:28
--- NOTE | 2019-08-02 09:05 | W.PM.DS.N ---
Date of service: 08/02/19 Time of Service: 09:05 DS: Diagnosis Discharge Diagnosis (1) Status post total knee replacement, right: Status: Acute Discharge Plan Disposition Patient Disposition: HOME W/HOME HEALTH SERVICE Condition: Good Discharge Details Reason For Visit: OA (R) KNEE/R total knee replacement Admit Date/Time: 07/29/19 05:59 Admit Provider: Narayan Singh Attending Provider: Narayan Singh Primary Care Provider: Onel Reynoso Hospital Course Hospital Course: She was taken to the operating room on the day of admission on 07/29/2019 where she underwent a right total knee replacement without complication. As she was being transferred from the OR table she was noted to have head lice. This was treated with Kwell shampoo. She was mobilized then per protocol for total knee replacement. She made steady progress achieving all acute care goals by 08/02/2019. This is actually remarkable considering her morbid obesity. She has no postop complications. Postop hemoglobins stabilized at 9.2 g. She remained afebrile throughout her postoperative course. By day of discharge she was independent with transfers and ambulation including on stairs. Her wound was clean and dry and she was flexing almost to 90 degrees. She was only taking p.o. pain meds. She was therefore discharged home. Home Meds and New Rx's Prescriptions: New hydrocodone-acetaminophen 5-325 mg tablet 1 tab PO Q6H PRN (Reason: pain) Qty: 20 RF: 0 ibuprofen 800 mg tablet 800 mg PO TID Qty: 30 RF: 0 No Action ibuprofen 200 mg capsule 800 mg PO Q6H PRNRF: 0 cholecalciferol (vitamin D3) 1,000 unit capsule 1,000 unit PO DAILY RF: 0 multivitamin [Daily Multi-Vitamin] 1 EACH tablet 1 ea PO DAILY RF: 0 naproxen sodium [Aleve] 220 MG tablet 220 mg PO PRN RF: 0 levothyroxine 200 MCG tablet 200 mcg PO DAILY RF: 0 omeprazole 20 MG capsule,delayed release(DR/EC) 20 mg PO DAILY RF: 0 magnesium oxide 400 MG tablet 400 mg PO DAILY Qty: 30 RF: 0 acetaminophen [Mapap Extra Strength] 500 MG tablet 1,000 mg PO PRN PRNRF: 0 Discharge Instructions Additional Instructions: Elevate right leg when sitting. May shower and get incision wet. Walk every day as much as her discomfort allows. Home health physical therapy. Follow-up with Dr. Singh in 2 weeks. Apply the Cryo/Cuff to the right knee 4 times a day for an hour each time. Take ibuprofen 800 mg 3 times a day for 10 days to decrease inflammation and swelling. Take hydrocodone for breakthrough pain, if needed. Take 1 baby aspirin(81mg) twice a day for 30 days to prevent blood clots in the legs. Care Plan Goals: Independent ambulation and mobility. Referrals: Narayan Singh MD [ [facility] STAFF PHYSICIAN] - (f/u in 2 weeks) Activity:: Activity as Tolerated Equipment/Supplies:: Walker Diet:: As Tolerated Discharge Orders Discharge Orders: Discharge Order (Routine); Ordered 08/02/19 Ordered By: Narayan Singh DS: Summary Status at Discharge Functional status at discharge: uses cane/walker Overall status at discharge: patient is back to baseline Mental Status: mental status grossly normal Speech and Movement: speech and movement normal Mood: congruent mood Affect: normal affect Exam Psych Mental Status: mental status grossly normal Speech and Movement: speech and movement normal Mood: congruent mood Affect: normal affect DS: Data Vitals/I&O Vitals and I&O: Vital Signs Temperature 36.5 C 08/02/19 07:40 Temperature Source Tympanic 08/02/19 07:40 Pulse 104 H 08/02/19 07:40 Pulse Rhythm Regular 08/02/19 02:53 Respiratory Rate 18 08/02/19 07:40 Respiratory Effort Non-Labored 08/02/19 02:53 Respiratory Depth Normal 08/02/19 02:53 Respiratory Pattern Normal 08/02/19 02:53 Blood Pressure 119/72 08/02/19 07:40 Pulse Oximetry 95 08/02/19 07:40 Respiratory End-tidal CO2 32 07/29/19 11:43 Oxygen Delivery Method Room Air 08/02/19 07:40 Oxygen Flow Rate 0 08/02/19 07:40 Pain Level 7 08/02/19 07:40 Intake & Output 08/01/19 08/01/19 08/02/19 11:59 23:59 11:59 Intake Total 870 / 870 400 / 400 Output Total 850 / 3100 2250 / 3100 1550 / 1550 Balance 20 / -2230 -2250 / -2230 -1150 / -1150 Intake: Oral 870 / 870 400 / 400 Output: Urine 850 / 3100 2250 / 3100 1550 / 1550 Other: Urine Color Yellow Yellow Yellow Urine Appearance Clear Clear Clear Urine Odor Normal Normal Normal Stool Size Large Stool Characteristics Soft Formed Voiding Methods Bedside Commode Bedside Commode Bedside Commode [facility] Family History (Updated 07/25/19 @ 14:54 by Dorothy Palmer) Father Stroke Mother No problems noted. Social History (Updated 07/25/19 @ 14:55 by Dorothy Palmer) Smoking/Tobacco Use Status: Never Alcohol Intake: former Drug use: Never Do you feel safe in your relationship?: Yes
--- NOTE | 2019-08-02 09:22 | PDOC.HHF2F ---
Home Health Certification Home Health Certification: 1. Encounter Date and Reason I certify that KRYSTAL FLYNN was seen by Narayan Singh MD on 08/02/19 and that I had a [id number] encounter with this patient that meets the physician face to face encounter requirements. 2. Clinical Findings Supporting Skilled Need and Homebound Status I certify that home health services are medically necessary, include either intermittent chcf and/or physical/speech therapy, and that this patient is homebound in that absences from the home require considerable and taxing effort and are infrequent or of short duration, or are attributable to the need to receive medical care. [X] (a) Attached documentation from encounter provides clinical findings supporting skilled need and homebound status (including what assistance patient requires to leave the home). The encounter with the patient was in whole, or in part, for the following medical condition, which is the primary reason for home health care: OA (R) KNEE/R total knee replacement [facility]: Physical Therapy: Range of motion and strengthening of right knee following right total knee replacement. Speech Therapy: Homebound: Patient meets the definition of homebound due to her total knee replacement 4 days ago and her morbid obesity. 3. Certification and Authentication I certify that I composed the above information based on my clinical judgement relating to this patient's medical condition and, if applicable, clinical findings communicated to me by the NPP or inpatient physician who performed the Home Health Referral. All further orders will be obtained through (Community Based Physician - PCP)
--- NOTE | 2019-08-02 10:35 | PDOC.HHF2F_ITS ---
Home Health Certification Home Health Certification: 1. Encounter Date and Reason I certify that KRYSTAL FLYNN was seen by Narayan Singh MD on 08/02/19 and that I had a [id number] encounter with this patient that meets the physician face to face encounter requirements. 2. Clinical Findings Supporting Skilled Need and Homebound Status I certify that home health services are medically necessary, include either intermittent longterm and/or physical/speech therapy, and that this pa tient is homebound in that absences from the home require considerable and taxing effort and are infrequent or of short duration, or are attributable to the need to receive medical care. [X] (a) Attached documentation from encounter provides clinical findings supporting skilled need and homebound status (including what assistance patient requires to leave the home). The encounter with the patient was in whole, or in part, for the following medical condition, which is the primary reason for home health care: OA (R) KNEE/R total knee replacement Correction: Physical Therapy:ROM and strengthening R knee, post-op R total knee Speech Therapy: Homebound:Meets criteria for homebound due to recent total knee replacement and her morbid obesity. 3. Certification and Authentication I certify that I composed the above information based on my clinical judgement relating to this patient's medical condition and, if applicable, clinical findings communicated to me by the NPP or inpatient physician who performed the Home Health Referral. All further orders will be obtained through (Community Based Physician - PCP)
--- NOTE | 2019-08-02 10:39 | PDOC.DSDIS_ITS ---
Discharge Plan Disposition Patient Disposition: HOME W/HOME HEALTH SERVICE Condition: Good Discharge Details Reason For Visit: OA (R) KNEE/R total knee replacement Admit Date/Time: 07/29/19 05:59 Admit Provider: Narayan Singh Attending Provider: Narayan Singh Primary Care Provider: Onel Reynoso Hospital Course Hospital Course: She was taken to the operating room on the day of admission on 07/29/2019 where she underwent a right total knee replacement without complication. As she was being transferred from the OR table she was noted to have head lice. This was treated with Kwell shampoo. She was mobilized then per protocol for total knee replacement. She made steady progress achieving all acute care goals by 08/02/2019. This is actually remarkable considering her morbid obesity. She has no postop complications. Postop hemoglobins stabilized at 9.2 g. She remained afebrile throughout her postoperative course. By day of discharge she was independent with transfers and ambulation including on stairs. Her wound was clean and dry and she was flexing almost to 90 degrees. She was only taking p.o. pain meds. She was therefore discharged home. Home Meds and New Rx's Prescriptions: New hydrocodone-acetaminophen 5-325 mg tablet 1 tab PO Q6H PRN (Reason: pain) Qty: 20 RF: 0 ibuprofen 800 mg tablet 800 mg PO TID Qty: 30 RF: 0 No Action ibuprofen 200 mg capsule 800 mg PO Q6H PRNRF: 0 cholecalciferol (vitamin D3) 1,000 unit capsule 1,000 unit PO DAILY RF: 0 multivitamin [Daily Multi-Vitamin] 1 EACH tablet 1 ea PO DAILY RF: 0 naproxen sodium [Aleve] 220 MG tablet 220 mg PO PRN RF: 0 levothyroxine 200 MCG tablet 200 mcg PO DAILY RF: 0 omeprazole 20 MG capsule,delayed release(DR/EC) 20 mg PO DAILY RF: 0 magnesium oxide 400 MG tablet 400 mg PO DAILY Qty: 30 RF: 0 acetaminophen [Mapap Extra Strength] 500 MG tablet 1,000 mg PO PRN PRNRF: 0 Discharge Instructions Instructions: Knee Replacement (DC) Additional Instructions: Elevate right leg when sitting. May shower and get incision wet. Walk every day as much as her discomfort allows. Home health physical therapy. Follow-up with Dr. Singh in 2 weeks. Apply the Cryo/Cuff to the right knee 4 times a day for an hour each time. Take ibuprofen 800 mg 3 times a day for 10 days to decrease inflammation and swelling. Take hydrocodone for breakthrough pain, if needed. Take 1 baby aspirin(81mg) twice a day for 30 days to prevent blood clots in the legs. Care Plan Goals: Independent ambulation and mobility. Stand Alone Forms: Nursing Discharge Form Referrals: Narayan Singh MD [ [facility] STAFF PHYSICIAN] - 08/14/19 9:30 am (f/u in 2 weeks) Activity:: Activity as Tolerated Equipment/Supplies:: Walker Diet:: As Tolerated Discharge Orders Discharge Orders: Discharge Order (Routine); Ordered 08/02/19 Ordered By: Narayan Singh DS: Diagnosis Discharge Diagnosis (1) Status post total knee replacement, right: Status: Acute
--- NOTE | 2019-08-02 10:40 | PDOC.HHF2F_ITS ---
Home Health Certification Home Health Certification: 1. Encounter Date and Reason I certify that KRYSTAL FLYNN was seen by Narayan Singh MD on 08/02/19 and that I had a [id number] encounter with this patient that meets the physician face to face encounter requirements. 2. Clinical Findings Supporting Skilled Need and Homebound Status I certify that home health services are medically necessary, include either intermittent care home and/or physical/speech therapy, and that this pa tient is homebound in that absences from the home require considerable and taxing effort and are infrequent or of short duration, or are attributable to the need to receive medical care. [X] (a) Attached documentation from encounter provides clinical findings supporting skilled need and homebound status (including what assistance patient requires to leave the home). The encounter with the patient was in whole, or in part, for the following medical condition, which is the primary reason for home health care: OA (R) KNEE/R total knee replacement [facility]: Physical Therapy:ROM and strengthening R knee Speech Therapy: Homebound:Meets criteria for homebound due to recent R total knee replacement and her morbid obesity. 3. Certification and Authentication I certify that I composed the above information based on my clinical judgement relating to this patient's medical condition and, if applicable, clinical findings communicated to me by the NPP or inpatient physician who performed the Home Health Referral. All further orders will be obtained through (Community Based Physician - PCP)
--- NOTE | 2019-08-02 10:42 | PDOC.HHF2F_ITS ---
Home Health Certification Home Health Certification: 1. Encounter Date and Reason I certify that KRYSTAL FLYNN was seen by Narayan Singh MD on 08/02/19 and that I had a [id number]-[id number] encounter with this patient that meets the physician face to face encounter requirements. 2. Clinical Findings Supporting Skilled Need and Homebound Status I certify that home health services are medically necessary, include either intermittent [facility] and/or physical/speech therapy, and that this pa tient is homebound in that absences from the home require considerable and taxing effort and are infrequent or of short duration, or are attributable to the need to receive medical care. [X] (a) Attached documentation from encounter provides clinical findings supporting skilled need and homebound status (including what assistance patient requires to leave the home). The encounter with the patient was in whole, or in part, for the following medical condition, which is the primary reason for home health care: OA (R) KNEE/R total knee replacement [facility]: Physical Therapy:ROM and strengthening R knee. Speech Therapy: Homebound:Meets criteria for homebound due to recent R total knee replacement and her morbid obesity. 3. Certification and Authentication I certify that I composed the above information based on my clinical judgement relating to this patient's medical condition and, if applicable, clinical findings communicated to me by the NPP or inpatient physician who performed the Home Health Referral. All further orders will be obtained through (Community Based Physician - PCP)
--- NOTE | 2019-08-02 10:45 | PDOC.HHF2F_ITS ---
Home Health Certification Home Health Certification: 1. Encounter Date and Reason I certify that KRYSTAL FLYNN was seen by Narayan Singh MD on 08/02/19 and that I had a himy-je-ltvs encounter with this patient that meets the physician face to face encounter requirements. 2. Clinical Findings Supporting Skilled Need and Homebound Status I certify that home health services are medically necessary, include either intermittent intermediate and/or physical/speech therapy, and that this pa tient is homebound in that absences from the home require considerable and taxing effort and are infrequent or of short duration, or are attributable to the need to receive medical care. [X] (a) Attached documentation from encounter provides clinical findings supporting skilled need and homebound status (including what assistance patient requires to leave the home). The encounter with the patient was in whole, or in part, for the following medical condition, which is the primary reason for home health care: OA (R) KNEE/R total knee replacement [facility]: Physical Therapy:ROM and strengthening R knee following total knee replacement Speech Therapy: Homebound:Meets criteria for homebound due to recent total knee and her morbid obesity. 3. Certification and Authentication I certify that I composed the above information based on my clinical judgement relating to this patient's medical condition and, if applicable, clinical findings communicated to me by the NPP or inpatient physician who performed the Home Health Referral. All further orders will be obtained through (Community Based Physician - PCP)
--- NOTE | 2019-08-02 10:46 | PDOC.CMDIS ---
- If Service Date Differs Date of service: 08/02/19 Time of Service: 10:46 LACE Index Scoring Tool - Questions: Length of Stay (in days): 4 - 6 Acuity (Admit via E.D.?): No E.D. Visits: 0 - Answers: Total Score: 4 Risk of Readmission: Low Risk Care Management Discharge Reason for Hospitalization: OA R Knee Discharge Plan: Sofia will return home with new orders for HH PT. CM coordinated FWW from [facility] for use at home, per MD. Sofia will be transported home via private vehicle driven by her daughter, Danelle. Patient/Family Education Needs: Review discharge instructions regarding medication and activity levels, discussion of self care needs including Ask Me Three. Services Needed at Discharge: DME Agency, Physical Therapy
--- NOTE | 2019-08-02 11:49 | PT.INTREAT ---
Date of service: 08/02/19 Time of Service: 11:49 PT Notes Inpatient Physical Therapy Treatment Note [facility] Date: 08/02/19 PRECAUTIONS: Fall, WBAT R SUBJECTIVE: Sofia feels that she is ready to be discharged to home today. She received her FWW from Care Management, and has her daughter and granddaughter lined-up to stay with her over the weekend. OBJECTIVE: PAIN: No c/o pain BED MOBILITY/TRANSFERS Supine-sit: I with HOB flat Sit-supine: S with HOB flat Sit-stand: S Stand-sit: S GAIT Assistive Device: FWW Weight bearing: WBAT R Assist: S Distance: 30' + 20' Deviation: Decreased step length and height, step-to, slow pacing THEREX: Patient completed a LE strengthening and stabilization program, in a long sit and supine positions, as per flow sheet. She requires assist for SLR exercise. ASSESSMENT: Patient tolerated session without complaint of pain. Patient would benefit from continued gait and transfer training for improved mobility and activity tolerance. PLAN: Continue with PT's POC TREATMENT CODE/TIME: 35 minutes; 51502, [id number]
--- NOTE | 2019-08-02 13:04 | PT.INDS ---
Date of service: 08/02/19 PT Notes Inpatient Physical Therapy Discharge Summary Date: 08/02/2019 Dates of Service: 07/29/2019 through 08/02/2019 This is a clinical summary of care provided on the duration of dates listed above. No charge was made in the completion of this documentation. Referring Doctor: Narayan Singh MD PT Orders: PT CONSULT: Eval/Treat Precautions: Fall. Standard. WBAT on R LE. Patient Profile/Admitting Diagnosis: Patient is a 64-year-old female with primary unilateral osteoarthritis of right knee and is status post right total knee arthroplasty on postoperative day 2. PMHX: Medical History (Updated 07/25/19 @ 14:53 by Dorothy Palmer) Cellulitis of left leg (Inactive) Hx of gastroesophageal reflux (GERD) (Acute) Streptococcal bacteremia (Inactive) Surgical History (Updated 07/25/19 @ 13:28 by Danelle Ham RN) History of arthroplasty of left knee (Acute) History of open reduction and internal fixation (ORIF) procedure (Acute) Right wrist Hx of cholecystectomy (Chronic) Hx of hysterectomy (Chronic) Hx of thyroidectomy (Chronic) Hx of vein stripping (Acute) Social History/Home Situation: Patient lives with in a one-floor house with 4 steps to enter and a rail on the R going up. Her granddaughter who lives with her does the grocery shopping and helps with steam conditioner filling. 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 She is independent with all aspect sof ADLs without the need for an assistive ambulatory device nor adaptive equipment. Equipment Owned/DME: 4WW Subjective: NT Objective: General Observation: NT Mental Status: NT Pain: NT Vital Signs: NT ROM: Right Upper Extremity: Shoulder Flexion WFL. Shoulder abduction WFL. Elbow flexion WFL. Wrist flexion WFL. Opening and closing of hand WFL. Left Upper Extremity: Shoulder Flexion WFL. Shoulder abduction WFL. Elbow flexion WFL. Wrist flexion WFL. Opening and closing of hand WFL. Right Lower Extremity: Hip flexion unable to perform due to pain and added weight of Rocha dressing and knee immobilizer. Patient unable to slide right LE sideways due to pain. Knee flexion not tested due to presence of Rocha dressing, DWAINE wraps, and knee immobilizer. Ankle dorsiflexion WFL. Ankle plantarflexion WFL. Left Lower Extremity: Hip flexion WFL. Hip abduction WFL. Knee flexion WFL. Ankle dorsiflexion WFL. Ankle plantarflexion WFL. Strength: Right Upper Extremity: Shoulder flexors 5/5. Shoulder abductors 5/5. Elbow flexors 5/5. Elbow extensors 4/5. Prn Occupational Therapist strong. Left Upper Extremity: Shoulder flexors 5/5. Shoulder abductors 5/5. Elbow flexors 5/5. Elbow extensors 4/5. Prn Occupational Therapist strong. Right Lower Extremity: Hip flexors 1/5. Hip abductors 1/5. Knee flexors 1/5. Knee extensors 1/5. Ankle dorsiflexors 4/5. Ankle plantarflexors 4/5. Left Lower Extremity:Hip flexors 5/5. Hip abductors 5/5. Knee flexors 5/5. Knee extensors 5/5. Ankle dorsiflexors 5/5. Ankle plantarflexors 5/5. Sensation: Intact as to pain and pressure on bilateral lower extremities. Bed Mobility/Transfers: Rolling I Supine to sit I Sit to supine S Sit to stand S Stand to sit S Bed to chair S Chair to bed S Gait: Patient was only able to tolerate 30' + 20' steps from bedside forward using FWW with WBAT on right requiring supervision with knee immobilizer on. Balance: Static Sitting: Good Dynamic Sitting: Fair Static Standing: Fair Dynamic Standing: Poor Assessment: Patient is a 64-year-old female with premorbid independent mobility level status post right total knee arthroplasty on postoperative day 0. She currently is limited by pain. Sensation to her right LE intact. Strength and range of motion assessed as above. Patient presents with clinical signs and symptoms consistent with current/admitting diagnoses that have resulted to mobility limitations, gait instability, generalized weakness, and impairment of motor control as demonstrated by the following impairment level findings: 1. Decreased strength to R LE major muscle groups 2. Impaired sitting/standing balance 3. Impaired activity tolerance 4. Limitation of joint range of motion in right hip and right knee joints Impairments are contributing to the following functional limitations: 1. Dependent bed mobility skills 2. Increased dependence with transfers 3. Inability to safely ambulate without assistive device and physical assistance 4. Increase completion time for mobility ADL performance 5. Increased fall risk 6. Inability to negotiate steps alone safely Goals: Goals X1 week 1. Supine-Sit independent MET 2. Sit-Supine independent MET 3. Sit-Stand independent NOT MET 4. Stand-Sit independent NOT MET 5. Bed-Chair independent NOT MET 6. Chair-Bed independent NOT MET 7. Independent gait on level surface with use of least restrictive device for at least 300 feet without report of pain nor dyspnea NOT MET 8. Independent stair negotiation while holding onto bilateral rails for at least 4 steps without report of pain nor dyspnea NOT MET 9. Independent with home exercise program NOT MET 10. Good static and dynamic standing balance/tolerance NOT MET DISCHARGE RECOMMENDATIONS: Patient will benefit from alf facility placement in order to progress mobility level, strength, and balance in preparation for a safe discharge to home. Patient will benefit from using FWW in order to maximize functional independence at discharge destination. TREATMENT CODE/TIME: EVANS Thank you very much for this referral. Tierra Prather PT, DPT, CLT [facility]
[2019-08-02] MEDS: Enoxaparin 40 MG/0.4 ML SYR SC (13:17)
== END 2019-08-02 16:35 | disposition home health service (06) | DRG 470 ==
LOC: PDS 06:01 → MS 11:25
PROVIDERS: Admitting Provider Orthopaedic Surgery; PCP Internal Medicine; Visit Provider Orthopaedic Surgery
PROC: 0SRC0J9 Replacement of Right Knee Joint with Synthetic Substitute, Cemented, Open Approach (ICD-10-PCS; CPT 27447; principal; 2019-07-29 07:30)
DX: M17.11 Unilateral primary osteoarthritis, right knee (principal); Z68.43 Body mass index [BMI] 50.0-59.9, adult; Z96.651 Presence of right artificial knee joint; M25.561 Pain in right knee; B85.0 Pediculosis due to Pediculus humanus capitis; E66.9 Obesity, unspecified; Z96.652 Presence of left artificial knee joint; G89.18 Other acute postprocedural pain; K21.9 Gastro-esophageal reflux disease without esophagitis
CPT/HCPCS: 27447; 36415; 76942; 85027; 97110; 97162; 97530; J1650; NC; 73560; J0690; J1885; J2250; J3010; L1830

== ENCOUNTER → 2019-08-14 09:22 | Outpatient (BNVA) | payer MEDICARE, SELFPAY | PROVIDERS: PCP Internal Medicine; Referring Provider Internal Medicine; Visit Provider Orthopaedic Surgery | DX: Z47.1 Aftercare following joint replacement surgery (principal); Z96.651 Presence of right artificial knee joint ==

== ENCOUNTER → 2019-09-25 09:29 | Outpatient (BNVA) | payer MEDICARE, SELFPAY | PROVIDERS: PCP Internal Medicine; Referring Provider Internal Medicine; Visit Provider Orthopaedic Surgery | DX: Z47.1 Aftercare following joint replacement surgery (principal); Z96.651 Presence of right artificial knee joint ==

== ENCOUNTER 2019-10-15 12:59 | Outpatient (REF) | payer MEDICARE, SELFPAY ==
[2019-10-15 21:20] LABS: HCT 39.6 % (36.0-46.0); HGB 12.3 g/dL (12.0-15.5); Mean Corp. HGB Concentration 31.1 g/dL (32.0-36.0); Mean Corpuscular Hemoglobin 27.5 pg (27.0-33.0); Mean Corpuscular Volume 88.4 fL (80-95); Mean Platelet Volume 10.5 fL (8.0-11.0); Platelet Count 243 x1000/uL (130-400); RBC 4.48 m/cumm (4.00-5.20); RBC Distribution Width 14.4 % (11.7-14.6); White Blood Cell Count 6.25 k/cumm (4.4-10.8)
[2019-10-15 21:40] LABS: Anion Gap 5.4 mmol/L (3-11); BUN 17 mg/dL (7-18); CO2 31.6 mmol/L (21.0-32.0); CREATININE 0.69 mg/dL (0.55-1.02); Chloride 107 mmol/L (98-107); Glucose 102 mg/dL (74-106); Potassium 4.7 mmol/L (3.5-5.1); Sodium 144 mmol/L (136-145); TSH (W/Ref FT4) 3.46 uIU/mL (0.36-3.74)
== END 2019-10-15 13:19 ==
LOC: NCHCN 12:59
PROVIDERS: PCP Internal Medicine; Visit Provider Nurse Practitioner Family
DX: E03.9 Hypothyroidism, unspecified (principal); M19.90 Unspecified osteoarthritis, unspecified site; E66.01 Morbid (severe) obesity due to excess calories; Z86.2 Personal history of diseases of the blood and blood-forming organs and certain disorders involving the immune mechanism
CPT/HCPCS: 80048; 85027; 84443

== ENCOUNTER 2019-10-16 12:50 | Outpatient (CLI) | payer MEDICARE, SELFPAY ==
--- NOTE | 2019-10-16 16:58 | DI.MAMMO_ITS ---
EXAM: MG MAMMO SCREENING CLINICAL HISTORY: SCREENING, Z12.31. TECHNIQUE: Bilateral full field digital CC and MLO mammographic images were obtained with 3D tomosyn thesis and utilizing computer aided detection (CAD). COMPARISON: 2016 FINDINGS: Masses/Architectural Distortion: None seen. Microcalcifications: No suspicious pleomorphic-type are seen. Skin Thickening/Nipple Retraction: None. IMPRESSION: 1. No significant interval change with no specific features of malignancy noted. 2. Unless there is more urgent need, screening mammography is recommended, as per [employer] guidelines. BI-RADS Cat 1 - Negative Breast Density - Category A - Almost entirely fatty A negative radiographic report should not delay biopsy if a dominant or clinically suspicious mass is present. Up to ten percent of cancers are not identified on mammography. A negative report may reinforce clinical impression. Adenosis and dense breasts may obscure an underlying neoplasm. False positive reports average 6 to 10%. Patient will receive a letter notifying them of these results.
== END 2019-10-16 13:10 ==
PROVIDERS: PCP Internal Medicine; Visit Provider Nurse Practitioner Family
DX: Z12.31 Encounter for screening mammogram for malignant neoplasm of breast (principal)
CPT/HCPCS: 77063; 77067

== ENCOUNTER 2020-08-19 11:33 | Outpatient (CLI) | payer MEDICARE, SELFPAY ==
--- NOTE | 2020-08-19 09:15 | DI.RAD_ITS ---
EXAM: XR KNEE RT 2V AP,LAT CLINICAL HISTORY: annual f/u TECHNIQUE: COMPARISON: CR XR knee RT 2V AP,lat from 07/29/2019 FINDINGS: Two views were obtained and show knee joint replacement in position. The tibial and femoral componen ts appear well seated. No patellar component visualized. No evidence of subluxation or dislocation. IMPRESSION: RADIATION DOSE DELIVERED: Total DLP
== END 2020-08-19 11:53 ==
PROVIDERS: PCP Internal Medicine; Referring Provider Internal Medicine; Visit Provider Orthopaedic Surgery
DX: Z96.651 Presence of right artificial knee joint (principal); Z47.1 Aftercare following joint replacement surgery; R20.0 Anesthesia of skin
CPT/HCPCS: 99213; 73560

== ENCOUNTER 2020-12-04 13:01 | Emergency (ER) | payer OTHER, SELFPAY ==
[2020-12-04 13:06] VITALS: BP 167/91; PULSE 95; RESP 20; TEMP 36.3; O2SAT 95
[2020-12-04 13:14] VITALS: RESP 20
--- NOTE | 2020-12-04 13:15 | DI.RAD_ITS ---
EXAM: XR TIB/FIB LT CLINICAL HISTORY: cellulitis, erythema noted, trauma. TECHNIQUE: 2D digital imaging was performed COMPARISON: No exams were available for comparison FINDINGS: BONES: No acute fracture is present. No bony destructive lesion is seen. Portions of a left total kne e replacement are identified. SOFT TISSUE: Normal. IMPRESSION: No acute fracture or dislocation. DATA REPOSITORY: RADIATION DOSE DELIVERED:
--- NOTE | 2020-12-04 13:31 | W.ED.GENAD ---
Discharge Plan Disposition Patient Disposition: HOME Discharge Details Clinical Impression: Cellulitis Primary Care Provider: Onel Reynoso ED Provider: Kate Chavez Home Meds and New Rx's Prescriptions: New cephalexin [Keflex] 500 mg capsule 500 mg PO QID Qty: 40 RF: 0 No Action ibuprofen 200 mg capsule 800 mg PO Q6H PRNRF: 0 cholecalciferol (vitamin D3) 1,000 unit capsule 1,000 unit PO DAILY RF: 0 multivitamin [Daily Multi-Vitamin] 1 EACH tablet 1 ea PO DAILY RF: 0 naproxen sodium [Aleve] 220 MG tablet 220 mg PO PRN RF: 0 levothyroxine 200 MCG tablet 200 mcg PO DAILY RF: 0 omeprazole 20 MG capsule,delayed release(DR/EC) 20 mg PO DAILY RF: 0 magnesium oxide 400 MG tablet 400 mg PO DAILY Qty: 30 RF: 0 acetaminophen [Mapap Extra Strength] 500 MG tablet 1,000 mg PO PRN PRNRF: 0 ibuprofen 800 mg tablet 800 mg PO TID Qty: 30 RF: 0 Discharge Instructions Instructions: Cellulitis (ED) Additional Instructions: Take antibiotics until completed Yogurt daily while on antibiotic Elevate your leg as frequently as possible Daily recheck recommended, significant improvement recheck blood pressure with pcp You will likely take 2 days for your antibiotics to begin to work With fever, chills, spreading redness, please return for reevaluation Discharge Data Discharge Date/Time-TO BE ENTERED AT DEPARTURE: 12/04/20 14:05 Medical Decision Making Patient appears well, she does not need criteria shortness she is neurovascularly intact Her tetanus is up-to-date We will start her on Keflex and she will need case management follow-up for recheck Given the threshold to return here if any concerns No crepitus Wound culture is pending, and ordered a wound culture given her complex history with wound ulcer on the affected extremity Medical Records Medical records reviewed: Yes I reviewed the patient's medical records. HPI 65-year-old female with past medical history of GERD and osteoarthritis she presents with pain and redness to her left vargas. Patient states that she banged her vargas on the corner of a table this weekend and they present started yesterday. States her tetanus is up-to-date. She denies any chills, chest pain, shortness of breath. She states she does have a history of an ulcer in this area that was infected and had a concern for recurrence. She denies any additional complaints at this time. Denies being immunosuppressed. denies history of diabetes. General Date/Time Provider Initiated Documentation: 12/04/20 13:06. Related Data Home Medications Medication Instructions Recorded Confirmed multivitamin [Daily Multi-Vitamin] 1 ea PO DAILY NS 02/15/13 12/04/20 naproxen sodium [Aleve] 220 mg PO PRN NS 02/15/13 12/04/20 levothyroxine 200 mcg PO DAILY tab-cap 04/28/15 12/04/20 omeprazole 20 mg PO DAILY 06/22/15 12/04/20 magnesium oxide 400 mg PO DAILY #30 tab 08/13/16 12/04/20 acetaminophen [Mapap Extra 1,000 mg PO PRN PRN 07/11/17 08/19/20 Strength] cholecalciferol (vitamin D3) 25 1,000 unit PO DAILY 05/02/19 12/04/20 mcg (1,000 unit) capsule ibuprofen 200 mg capsule 800 mg PO Q6H PRN cap 06/27/19 12/04/20 ibuprofen 800 mg PO TID #30 tab 08/02/19 12/04/20 cephalexin [Keflex] 500 mg PO QID #40 cap 12/04/20 Previous Rx's Medication Instructions Recorded magnesium oxide 400 mg PO DAILY #30 tab 08/13/16 ibuprofen 800 mg PO TID #30 tab 08/02/19 cephalexin [Keflex] 500 mg PO QID #40 cap 12/04/20 Allergies Allergy/AdvReac Type Severity Reaction Status Date / Time Sulfa (Sulfonamide Allergy Mild rash Unverified 12/04/20 13:10 Antibiotics) morphine AdvReac Severe nausea, Unverified 12/04/20 13:10 vomiting diarrhea General Stated Complaint: Vascular ZENON: 3 Review of Systems Narrative: Review of systems negative x7 aside from where indicated in HPI [facility] Medical History (Updated 12/04/20 @ 13:53 by SERENA Dean) Cellulitis of left leg Hx of gastroesophageal reflux (GERD) Streptococcal bacteremia Surgical History (Updated 07/30/19 @ 14:24 by Narayan Singh MD) History of arthroplasty of left knee History of open reduction and internal fixation (ORIF) procedure Right wrist Hx of cholecystectomy Hx of hysterectomy Hx of thyroidectomy Hx of vein stripping Family History (Updated 07/25/19 @ 14:54 by Dorothy Palmer) Father Stroke Mother No problems noted. Social History (Updated 07/25/19 @ 14:55 by Dorothy Palmer) Smoking/Tobacco Use Status: Never Smoking risk assessment performed?: Yes Alcohol Intake: former Drug use: Never Substance use type: does not use Current gender identity: female Do you feel safe at home: Yes Do you feel safe in your relationship?: Yes Exam Narrative Exam Narrative: Constitutional: Well developed HEENT: No visible signs of trauma, no palpable Tenderness Eyes: Pupils equal round reactive to light and accommodation Neck: Nontender, no visible sign of trauma Musculoskeletal: No lumbar tenderness, no thoracic tenderness, no cervical spine from this, no hip tenderness bilaterally, no left knee tenderness, left ankle tenderness, over lateral malleolus, no papular no obvious deformity, Skin : No discoloration Neuro: Alert, oriented for age Const General: healthy appearing and no acute distress Orientation: oriented x3 Eyes Conjunctivae: conjunctivae normal Resp Effort & Inspection: normal respiratory effort Auscultation: clear to auscultation bilaterally Cardio Rate: regular rate Rhythm: regular rhythm Other: distal pulses intact Skin Other: Left vargas overlying area of previous ulcer has erythema and purulence region No crepitus Distal pulses intact Sensation intact distally No lymphangitis No evidence of infection overlying knee Neuro General: patient alert and patient oriented x3 Course Vital Signs Vital signs: Vital Signs Temperature 36.3 C L 12/04/20 13:06 Pulse 95 H 12/04/20 13:06 Respiratory Rate 20 12/04/20 13:06 Blood Pressure 167/91 H 12/04/20 13:06 Pulse Oximetry 95 12/04/20 13:06 Temperature 36.3 C L 12/04/20 13:06 Pulse 95 H 12/04/20 13:06 Respiratory Rate 20 12/04/20 13:14 Respiratory Effort 12/04/20 13:15 Respiratory Depth Normal 12/04/20 13:14 Respiratory Pattern Normal 12/04/20 13:14 Blood Pressure 167/91 H 12/04/20 13:06 Blood Pressure Position Sitting 12/04/20 13:06 Pulse Oximetry 95 12/04/20 13:06 Oxygen Delivery Method Room Air 12/04/20 13:06 Oxygen Flow Rate 0 12/04/20 13:06 Pain Level 5 12/04/20 13:06 Lab/Test Results Lab/Test Results: 12/04/20 13:17 Leg - Left Lower Skin Culture - Pending
== END 2020-12-04 14:05 | disposition home or self-care (01) ==
PROVIDERS: Emergency Provider Physician Assistant; PCP Internal Medicine
DX: L03.116 Cellulitis of left lower limb (principal)
CPT/HCPCS: 99283; 73590; 87070; 99284

== ENCOUNTER 2020-12-24 01:07 | Outpatient (CLI) | payer OTHER, MEDICARE, SELFPAY ==
--- NOTE | 2020-12-24 15:35 | DI.DEXA_ITS ---
EXAM: XR DEXA BONE DENSITY W/WO JULIANA CLINICAL HISTORY: SCREENING FOR OSTEOPOROSIS IN POSTMENOPAUSAL WOMAN, Z78.0 TECHNIQUE: [employer] C densitometer COMPARISON: No exams were available for comparison FINDINGS: The lateral director of materials view of the thoracic and lumbar spine show no evidence of compression fractures. D egenerative disc changes are noted in the lumbar region. The bone mineral density measurements of the lumbar spine correspond to a total T-score of 1.6, in th e normal range. The bone mineral density measurements of the left hip correspond to a total T-score of 1.6 and a femoral neck T-score of 1.6, in the normal range. The left forearm bone mineral density measurements correspond to a T-score in the distal 3rd of 0.2, in the normal range. IMPRESSION: Normal bone mineral density of the lumbar spine, left hip and left forearm.
== END 2020-12-24 01:08 ==
LOC: DI 01:08
PROVIDERS: PCP Internal Medicine; Visit Provider Nurse Practitioner Family
DX: Z78.0 Asymptomatic menopausal state (principal)
CPT/HCPCS: 77080

== ENCOUNTER 2021-03-02 15:06 | Outpatient (REF) | payer OTHER, MEDICARE, SELFPAY ==
[2021-03-02 13:09] LABS: HCT 43.3 % (36.0-46.0); HGB 13.4 g/dL (11.2-15.7); MCH 27.1 pg (27.0-33.0); MCHC 30.9 % (32.0-36.0); MCV 87.5 fL (80-95); MPV 10.8 fL (8.0-11.0); Platelet Count 212 10^3/uL (130-400); RBC 4.95 10^6/uL (3.93-5.22); RDW 15.2 % (11.7-14.6); RDW-SD 49.1 fL; WBC 5.92 10^3/uL (4.4-10.8)
[2021-03-02 13:41] LABS: ALT 24 U/L (14-59); AST 18 U/L (15-37); Calculated LDL 118 mg/dL (<100); Cholesterol 191 mg/dL (<200); HDL Cholesterol 60 mg/dL (40-60); TSH (W/Ref FT4) 2.66 uIU/mL (0.36-3.74); Triglyceride 67 mg/dL (<150)
== END 2021-03-02 15:07 | disposition home or self-care (01) ==
LOC: NCHCN 15:06
PROVIDERS: PCP Internal Medicine; Visit Provider Nurse Practitioner Family
DX: E03.9 Hypothyroidism, unspecified (principal); R79.89 Other specified abnormal findings of blood chemistry; Z86.2 Personal history of diseases of the blood and blood-forming organs and certain disorders involving the immune mechanism; Z13.6 Encounter for screening for cardiovascular disorders; E66.01 Morbid (severe) obesity due to excess calories
CPT/HCPCS: 80061; 85027; 83036; 84443; 84450; 84460

== ENCOUNTER → 2021-06-28 01:52 | Outpatient (CLI) | payer OTHER, SELFPAY ==
--- NOTE | 2021-06-28 | DI.MAMMO_ITS ---
Exam(s) MAMMO SCREENING EXAM: MAMMO SCREENING CLINICAL HISTORY: SCREENING,Z12.31. TECHNIQUE: Bilateral full field digital CC and MLO mammographic images were obtained with 3D tomosyn thesis and utilizing computer aided detection (CAD). COMPARISON: Prior mammograms dating back to 2016, the most recent being October 2019. FINDINGS: There are no new spiculated masses nor malignant appearing microcalcification groups. There is no significant architectural distortion nor skin thickening-retraction. IMPRESSION: No radiographic evidence of malignancy. BI-RADS Category 1 - Negative Breast Density - Category A - Almost entirely fatty Breast density Category C or D implies that the patient has dense breast tissue. Dense breast tissue can make it harder to find cancer on a mammogram. Dense breast tissue is also associated with an incr eased risk of breast cancer. This information about the result of the mammogram report was provided to the patient to raise their awareness. Use this report when you speak with the patient about their risks for breast cancer, which includes their family history. At that time, you may recommend additional screening tests (Ultrasoun d or MRI) as these tests may add significant information. A negative radiographic report should not delay biopsy if a dominant or clinically suspicious mass is present. Up to ten percent of cancers are not identified on mammography. A negative report may reinforce clinical impression. Adenosis and dense breasts may obscure an underlying neoplasm. False positive reports average 6 to 10%. Patient will receive a letter notifying them of these results.
== END ==
PROVIDERS: PCP Internal Medicine; Visit Provider Nurse Practitioner Family
DX: Z12.31 Encounter for screening mammogram for malignant neoplasm of breast (principal)
CPT/HCPCS: 77063; 77067

== ENCOUNTER 2021-10-19 00:35 | Outpatient (CLI) | payer OTHER, SELFPAY ==
--- NOTE | 2021-10-19 10:25 | DI.US_ITS ---
APPROVED REPORT EXAM: Comprehensive 2D, Doppler, and color-flow Echocardiogram Patient Location: Out-Patient [facility] Tender: Deanna Oseguera RDCS (AE) Indications: Heart murmur Other Information Study Quality: Adequate. Technically limited study due to body habitus, exam done supine. Conclusion Borderline concentric left ventricular hypertrophy. Normal left ventricular chamber size estimated e jection fraction is 55 to 60%. Wall motion is normal Normal right ventricular size and systolic function Both atria are normal in size There are no structural valvular abnormalities Trace aortic, mitral, regurgitation. Mild tricuspid regurgitation. Estimated right ventricular syst olic pressure is 36 mmHg Wall motion Left Ventricle The left ventricle is normal size. The left ventricular systolic function is normal. The left ventric ular ejection fraction is within the normal range. Borderline concentric left ventricular hypertrophy . There is normal LV segmental wall motion. There is no ventricular septal defect visualized. LVEF is 58%. Right Ventricle The right ventricle is normal size. The right ventricular systolic function is normal Atria The left atrium size is normal. The right atrium size is normal. The interatrial septum is intact wit h no evidence for an atrial septal defect. Aortic Valve The aortic valve is normal in structure. Aortic valve is trileaflet. There is no aortic valvular sten osis. Trace aortic regurgitation. Mitral Valve The mitral valve is normal in structure.. No evidence of mitral valve stenosis. Trace mitral regurgit ation. Tricuspid Valve The tricuspid valve is normal in structure. There is no tricuspid valve stenosis. Mild tricuspid regu rgitation. Pulmonic Valve Pulmonic valve is not well visualized. There is no pulmonic valvular stenosis. There is no pulmonic v alvular regurgitation. Great Vessels The aortic root is normal in size. Ascending aorta is not well visualized. Aortic arch is normal in c aliber. IVC is normal in size and collapses >50% with inspiration. Pericardium There is no pericardial effusion. 2D Dimensions IVSD d PLAX 1.06 cm F: 0.6-1.0 LV Vol A2C d MOD 76.0 mL LVPW d PLAX 1.07 cm F: 0.6 - 1.0 LV Vol A4C d MOD 84.9 mL LVID d PLAX 4.71 cm F: 3.8 - 5.2 LA vol/ BSA A2C s A-L 12.9 mL/m2 LVDs 3.30 cm F: 2.2 - 3.5 LA vol/ BSA A4C s A-L 27.3 mL/m2 Ao Root d 3.04 cm F: 2.7 - 3.3 LA Vol/ BSA Biplane s A-L 20.7 mL/m2 RA Area A4C 17.65 cm2 LA Area A4C s MOD 20.61 cm2 RA Vol/ BSA A4C s A-L 20.4 mL/m2 LA Area A2C s MOD 12.79 cm2 LV EF Teichholz 57.0 % LV EF A4C MOD 58.1 % LVEF (Abraham's) 56.56 % F: 54 - 74 LV EF A2C MOD 57.2 % LV Volume 57.76 mL F: 46 - 106 LV EF Biplane MOD 56.6 % LV Volume Index 25.11 mL/m2 F: 29 - 61 SV 45.59 mL LV Vol Biplane MOD 80.6 mL SV Index 19.76 mL/m2 FS 29.85 % M-Mode TAPSE 2.57 cm (M/F) >1.7 LV Diastology MV E' medial 0.120 (>0.07 m/s) E/A Ratio 1.0 LV E/e MED 7.30 (<14) MV E Vmax 0.88 (0.4-1.3 m/s) MV E' lateral 0.083 (>0.1 m/s) MV A Vmax 0.90 (0.4-1.3 m/s) LV E/e LAT 10.55 (<14) MV E/A Ratio 0.95 MV E/E' medial 7.35 MV E/E' lateral 10.59 Aortic Valve LVOT Area 2.75 cm2 AoV Area Vmax 2.40 cm2 LVOT Vmax 1.46 m/s AoV Area/ BSA (Vmax) 1.04 cm2/m2 LVOT Mean Everardo. 0.90 m/s REED Mean Everardo. 2.14 cm2 LVOT Peak Grad 8.5 mmHg REED Mean Everardo. Index 0.93 cm2/m2 LVOT Mean Grad 4.0 mmHg LVOT VTI 0.324 m LVOT Diam s 1.85 cm AoV Vmax 1.67 m/s Velocity Ratio 0.87 AoV Mean Everardo. 1.16 m/s AoV Peak Grad 11.2 mmHg LVOT SV 89.36 mL AoV Mean Grad 6.0 mmHg AoV VTI 0.335 m AoV Area VTI 2.66 cm2 AoV Area/ BSA (VTI) 1.15 cm/m2 Mitral Valve MV DT 236 (160-240 msec) MR Vmax 4.89 m/s MV PHT 68 msec MR VTI 1.447 m MV Area PHT 3.21 cm2 MR Peak Grad 95.6 mmHg MV VTI 0.444 m MR Mean Grad 76.3 mmHg MV VTI Annulus 0.464 m MV Area VTI 2.10 (4.0-6.0 cm2) Pulmonary Valve PV Vmax 1.55 (0.5-1.5 m/s) RVOT Peak Gr. 3.26 mmHg PV Peak Grad 9.6 mmHg RVOT Mean Gr. 1.60 mmHg PV Mean Grad 4.7 mmHg RVOT VTI 0.177 m PV VTI 0.270 m RVOT Vmax 0.90 m/s Tricuspid Valve TR Peak Grad 33.8 mmHg TR Vmax 2.91 m/s RA Pressure 3.00 mmHg RVSP (TR) 36.8 mmHg
== END 2021-10-19 00:55 ==
PROVIDERS: PCP Internal Medicine; Visit Provider Nurse Practitioner Family
DX: R01.1 Cardiac murmur, unspecified (principal); R93.9 Diagnostic imaging inconclusive due to excess body fat of patient; I36.1 Nonrheumatic tricuspid (valve) insufficiency
CPT/HCPCS: 93306

== ENCOUNTER 2021-12-22 12:41 | Outpatient (REF) | payer OTHER, SELFPAY ==
[2021-12-22 21:27] LABS: HCT 41.3 % (36.0-46.0); HGB 12.9 g/dL (11.2-15.7); MCH 27.6 pg (27.0-33.0); MCHC 31.2 % (32.0-36.0); MCV 88.2 fL (80-95); MPV 11.2 fL (8.0-11.0); Platelet Count 228 10^3/uL (130-400); RBC 4.68 10^6/uL (3.93-5.22); RDW 13.8 % (11.7-14.6); RDW-SD 44.6 fL
[2021-12-22 21:53] LABS: Iron 46 ug/dL (50-170)
[2021-12-22 22:01] LABS: ALT 33 U/L (14-59); AST 24 U/L (15-37); Anion Gap 8.5 mmol/L (3-11); BUN 22 mg/dL (7-18); CO2 28.5 mmol/L (21.0-32.0); CREATININE 0.9 mg/dL (0.55-1.02); Calcium 9.5 mg/dL (8.5-10.1); Chloride 104 mmol/L (98-107); Glucose 93 mg/dL (74-106); Potassium 4.6 mmol/L (3.5-5.1); Sodium 141 mmol/L (136-145); TSH (W/Ref FT4) 0.12 uIU/mL (0.36-3.74)
[2021-12-22 22:18] LABS: FREE T4 1.77 ng/dL (0.76-1.46)
== END 2021-12-22 12:42 | disposition home or self-care (01) ==
LOC: NCHCN 12:41
PROVIDERS: PCP Internal Medicine; Visit Provider Nurse Practitioner Family
DX: G47.61 Periodic limb movement disorder (principal); E03.9 Hypothyroidism, unspecified; E66.01 Morbid (severe) obesity due to excess calories; I36.1 Nonrheumatic tricuspid (valve) insufficiency; Z86.2 Personal history of diseases of the blood and blood-forming organs and certain disorders involving the immune mechanism
CPT/HCPCS: 80048; 85027; 83540; 84439; 84443; 84450; 84460

== ENCOUNTER 2021-12-31 01:05 | Outpatient (CLI) | payer OTHER, SELFPAY ==
[2021-12-31 13:02] LABS: Source Nasal/Nares
[2021-12-31 17:42] LABS: COVID-19 PCR Negative (Negative)
== END 2021-12-31 01:06 | disposition home or self-care (01) ==
LOC: LBO 01:05
PROVIDERS: PCP Internal Medicine; Visit Provider Ophthalmology
DX: Z20.822 Contact with and (suspected) exposure to COVID-19 (principal)
CPT/HCPCS: 87635; U0005

== ENCOUNTER 2022-01-03 08:19 | Day surgery (SDC) | payer OTHER, SELFPAY ==
[2022-01-03] MEDS: Tropicam./Phenyleph. (1/2.5%) 5 ML BTL OD ×3 (08:51→09:05)
[2022-01-03 08:53] VITALS: BP 151/83; PULSE 76; RESP 18; TEMP 36.4; O2SAT 96
--- NOTE | 2022-01-03 09:10 | W.ANESPRE ---
General Info Date of Service Date Performed: 01/03/22 Height: 5 ft 3 in Weight: 135 kg Body Mass Index (BMI): 52.7 Surgical Procedure: Operation Date: 01/03/22 10:40 Proposed Procedure Side Surgeon p Cataract Extraction with IOL Implant Right Artemio Morales MD Meds Allergies and Home Medications Allergies Allergy/AdvReac Type Severity Reaction Status Date / Time Sulfa (Sulfonamide Allergy Mild rash Verified 01/03/22 08:43 Antibiotics) morphine AdvReac Severe nausea, Verified 01/03/22 08:43 vomiting diarrhea Home Medication Medication Instructions Recorded Aleve 220 mg tablet (naproxen 220 mg PO PRN NS 02/15/13 sodium) Daily Multi-Vitamin (multivitamin) 1 ea PO DAILY NS 02/15/13 omeprazole 20 mg capsule,delayed 20 mg PO DAILY 06/22/15 release magnesium oxide 400 mg (241.3 mg 400 mg PO DAILY #30 tab 08/13/16 magnesium) tablet acetaminophen 500 mg tablet (Mapap 1,000 mg PO PRN PRN 07/11/17 Extra Strength) cholecalciferol (vitamin D3) 25 1,000 unit PO DAILY 05/02/19 mcg (1,000 unit) capsule ibuprofen 200 mg capsule 800 mg PO Q6H PRN cap 06/27/19 ibuprofen 800 mg tablet 800 mg PO TID #30 tab 08/02/19 gabapentin 100 mg capsule 100 mg PO DAILY 12/30/21 metformin 500 mg tablet 1,000 mg PO BID 12/30/21 sertraline 25 mg tablet 25 mg PO DAILY 12/30/21 atorvastatin 20 mg tablet 20 mg PO DAILY 01/03/22 levothyroxine 150 mcg tablet 150 mcg PO DAILY 01/03/22 Current Visit Medications: Current Medications Generic Name Dose Route Start Last Admin Trade Name Freq PRN Reason Stop Dose Admin Acetaminophen 1,000 mg 01/03/22 06:00 Acetaminophen 500 Mg Tab PO Q4H PRN PRN Miscellaneous Medication 0 ml 01/03/22 06:00 Prednisolone 1%, Moxifloxacin 0.5%, Nepafenac 0.1% 5ml Btl OD DIRECTED [facility] Miscellaneous Medication 0 ml 01/03/22 06:00 01/03/22 09:05 Tropicam./Phenyleph. (1/2.5%) 5 Ml Btl OD 1 drp DIRECTED [facility] Administration Tetracaine HCl 0 ml 01/03/22 06:00 Tetracaine 0.5% 4 Ml Btl OD DIRECTED [facility] PFSH Active Problems Active Problems: Problem Status Onset Code Primary osteoarthritis of right knee M17.11 Hx of gastroesophageal reflux (GERD) Z87.19 Status post total knee replacement, right Z96.651 Medical History Medical History Anemia Binge eating disorder Cellulitis of left leg Depression Esophageal ring Heart murmur Hypothyroidism Osteoarthritis Prediabetes Sleep apnea Streptococcal bacteremia Surgical History Surgical History History of arthroplasty of left knee History of open reduction and internal fixation (ORIF) procedure Right wrist Hx of cholecystectomy Hx of hysterectomy Hx of thyroidectomy Hx of vein stripping Tobacco Smoking/Tobacco Use Status: Never Alcohol Alcohol Intake: former Substance Use Substance use: Never Substance use type: does not use Vital Signs and Lab Results Vital Signs Most Recent Vital Signs in EMR: Most Recent Vital Signs Temp Pulse Resp BP Pulse Ox 36.4 C L 76 18 151/83 H 96 01/03/22 08:53 01/03/22 08:53 01/03/22 08:53 01/03/22 08:53 01/03/22 08:53 Lab Results Blood Type / Crossmatch: No Data to Display Complete Blood Count: White Blood Count 7.60 10^3/uL (4.4-10.8) 12/22/21 12:38 12/22/21 Red Blood Count 4.68 10^6/uL (3.93-5.22) 12/22/21 12:38 12/22/21 Hemoglobin 12.9 g/dL (11.2-15.7) 12/22/21 12:38 12/22/21 Hematocrit 41.3 % (36.0-46.0) 12/22/21 12:38 12/22/21 Platelet Count 228 10^3/uL (130-400) 12/22/21 12:38 12/22/21 Complete Metabolic Panel: Sodium Level 141 mmol/L (136-145) 12/22/21 12:38 12/22/21 Potassium Level 4.6 mmol/L (3.5-5.1) 12/22/21 12:38 12/22/21 Chloride Level 104 mmol/L (98-107) 12/22/21 12:38 12/22/21 Carbon Dioxide Level 28.5 mmol/L (21.0-32.0) 12/22/21 12:38 12/22/21 Blood Urea Nitrogen 22 mg/dL (7-18) H 12/22/21 12:38 12/22/21 Creatinine 0.9 mg/dL (0.55-1.02) 12/22/21 12:38 12/22/21 Estimated GFR/1.73 m2 >= 60.00 (mL/min/1.73m2) 12/22/21 12:38 12/22/21 Calcium Level 9.5 mg/dL (8.5-10.1) 12/22/21 12:38 12/22/21 Glucose Level 93 mg/dL (74-106) 12/22/21 12:38 12/22/21 Liver Function Panel: Alanine Aminotransferase (ALT/SGPT) 33 U/L (14-59) 12/22/21 12:38 12/22/21 Aspartate Amino Transf (AST/SGOT) 24 U/L (15-37) 12/22/21 12:38 12/22/21 Coagulation Panel: No Data to Display Cardiac Panel: No Data to Display Arterial Blood Gas: No Data to Display Venous Blood Gas: No Data to Display Pancreas Panel: No Data to Display Thyroid Panel: Thyroid Stimulating Hormone (TSH) 0.12 uIU/mL (0.36-3.74) L 12/22/21 12:38 12/22/21 Infectious Disease: Coronavirus (COVID-19)(PCR) Negative (Negative) 12/31/21 11:10 12/31/21 Coronavirus 2019 Source Nasal/Nares 12/31/21 11:10 12/31/21 Blood Cultures: No Data to Display Toxicology Panel: No Data to Display Imaging and Studies Imaging and Studies Study information below may be from another EMR and interpreted by another provider. Please see original notes in EMR for more complete details. Echocardiogram Summary: Date of Exam: 10/19/21Sex: F Admission Date: 10/19/21 : 1955 Age: 66 Indications: Heart murmur Conclusion Borderline concentric left ventricular hypertrophy. Normal left ventricular chamber size estimated ejection fraction is 55 to 60%. Wall motion is normal Normal right ventricular size and systolic function Both atria are normal in size There are no structural valvular abnormalities Trace aortic, mitral, regurgitation. Mild tricuspid regurgitation. Estimated right ventricular systolic pressure is 36 mmHg Wall motion Left Ventricle The left ventricle is normal size. The left ventricular systolic function is normal. The left ventricular ejection fraction is within the normal range. Borderline concentric left ventricular hypertrophy. There is normal LV segmental wall motion. There is no ventricular septal defect visualized. LVEF is 58%. Right Ventricle The right ventricle is normal size. The right ventricular systolic function is normal Atria The left atrium size is normal. The right atrium size is normal. The interatrial septum is intact with no evidence for an atrial septal defect. Aortic Valve The aortic valve is normal in structure. Aortic valve is trileaflet. There is no aortic valvular stenosis. Trace aortic regurgitation. Mitral Valve The mitral valve is normal in structure.. No evidence of mitral valve stenosis. Trace mitral regurgitation. Tricuspid Valve The tricuspid valve is normal in structure. There is no tricuspid valve stenosis. Mild tricuspid regurgitation. Pulmonic Valve Pulmonic valve is not well visualized. There is no pulmonic valvular stenosis. There is no pulmonic valvular regurgitation. Great Vessels The aortic root is normal in size. Ascending aorta is not well visualized. Aortic arch is normal in caliber. IVC is normal in size and collapses >50% with inspiration. Pericardium There is no pericardial effusion. Anesthesia Assessment and Plan Anesthesia History Personal History: No History of Anesthesia Complications Family History: No Family History of Anesthesia Complications Exercise Tolerance Exercise Tolerance: Metabolic Equivalents>4 Pertinent Negatives Pertinent Negatives: No Symptoms of GERD Cardiac & Pulmonary Exam Cardiac Exam: Normal S1/S2 Heart Sounds Pulmonary Exam: Clear Bilateral Breath Sounds Implantable Cardiac Device Does patient have a Pacemaker or an ICD?: No Airway Exam Known Difficult Airway: No Mallampati Class: 2 Mouth Opening: Normal (> 3cm) Thyromental Distance: Greater than 3 cm Neck Range of Motion: Full ROM Neck Circumference: Normal Teeth Condition: Normal Dentition ASA Classification ASA Score: ASA 3 Emergency Case?: No NPO Status NPO Status: NPO Clears >2 hours, Solids >8 hours Anesthesia Plan Resuscitation Status: Full Code Anesthesia Technique: MAC Anesthesia Airway Planned: Natural Airway Monitors Used: Standard Monitors
[2022-01-03 09:34] VITALS: BMI 52.7
[2022-01-03] MEDS: Tetracaine 0.5% 4 ML BTL OD (09:47)
[2022-01-03] MEDS: Povidone-Iodine Ophth 30 ML BTL (09:48)
[2022-01-03] MEDS: Lidocaine 2% Jelly 6 ML SYR (09:50)
[2022-01-03] MEDS: Balanced Salt Soln.-PLUS 500 ML BAG (09:53)
[2022-01-03] MEDS: Duovisc Viscoelastic System EACH 1 EACH (09:53)
[2022-01-03] MEDS: Trypan Blue 0.06% 0.5 ML SYR (09:57)
[2022-01-03 10:19] VITALS: BP 138/61; PULSE 78; RESP 16; TEMP 37; O2SAT 97
--- NOTE | 2022-01-03 10:21 | W.PM.DSUDISC ---
Discharge Plan Disposition Patient Disposition: HOME Condition: Good Discharge Details Attending Provider: Artemio Morales Primary Care Provider: Onel Reynoso Home Meds and New Rx's Prescriptions: No Action ibuprofen 200 mg capsule 800 mg PO Q6H PRN0RF cholecalciferol (vitamin D3) 1,000 unit capsule 1,000 unit PO DAILY 0RF multivitamin [Daily Multi-Vitamin] 1 EACH tablet 1 ea PO DAILY 0RF naproxen sodium [Aleve] 220 MG tablet 220 mg PO PRN 0RF omeprazole 20 MG capsule,delayed release(DR/EC) 20 mg PO DAILY 0RF magnesium oxide 400 MG tablet 400 mg PO DAILY Qty: 30 0RF acetaminophen [Mapap Extra Strength] 500 MG tablet 1,000 mg PO PRN PRN0RF ibuprofen 800 mg tablet 800 mg PO TID Qty: 30 0RF metformin 500 mg tablet 1,000 mg PO BID 0RF Label Comments: Take 1 tablet by mouth as directed week 1- 1 tab every night, week 2 1 tab BID, week 3- 1 tab in the am and 2 tabs PM, week 4- 2 tablets BID sertraline 25 mg tablet 25 mg PO DAILY 0RF Label Comments: TAKE 1 TABLET BY MOUTH DAILY gabapentin 100 mg capsule 100 mg PO DAILY 0RF Label Comments: TAKE 1 CAPSULE BY MOUTH EVERY DAY. MAY ADD A DOSE AT BEDTIME IF MEDICATION IS HELPFUL atorvastatin 20 mg tablet 20 mg PO DAILY 0RF Label Comments: TAKE 1 TABLET BY MOUTH EVERY DAY levothyroxine 150 mcg tablet 150 mcg PO DAILY 0RF Label Comments: TAKE 1 TABLET BY MOUTH EVERY DAY Discharge Instructions Stand Alone Forms: Post-op Topical CataractBrain (DSU) Discharge Orders Discharge Orders: Discharge Order (Routine); Ordered 01/03/22 Ordered By: Artemio Morales DS: Diagnosis Discharge Diagnosis (1) Nuclear sclerotic cataract of right eye: Status: Resolved (2) Posterior subcapsular age-related cataract, right eye: Status: Resolved
--- NOTE | 2022-01-03 10:22 | ROE_ITS ---
Date of service: 01/03/22 Time of Service: : Operative Note Operative Note DATE OF PROCEDURE: 01/03/22 PRE-OP DIAGNOSIS: Dense nuclear/posterior subcapsular cataract, right eye Poor red reflex, right eye, secondary to dense cataract POST-OP DIAGNOSIS: same PROCEDURE: Cataract extraction using phacoemulsification with intraocular lens implant, right eye Capsular staining with VisionBlue SURGEON: Artemio Morales ANESTHESIA TYPE: Local By Surgeon and MAC Refer to Anesthesia Record ESTIMATED BLOOD LOSS: 0 PATHOLOGY: none sent COMPLICATIONS: None Patient was transported to: same day Patient's condition: stable Implants: Mukesh Clareon [id number] Indications: Progressive decreased vision due to cataract, right eye Procedure Description: CATARACT SURGERY OPERATIVE REPORT PREOPERATIVE DIAGNOSIS: Dense nuclear/posterior subcapsular cataract, right eye Poor red reflex, right eye secondary to dense cataract POSTOPERATIVE DIAGNOSIS: Same OPERATION: Cataract extraction using phacoemulsification with posterior chamber intraocular lens implant, right eye. Capsular staining with VisionBlue IOL: IOL Educational Programming Director/Model: Mukesh Clareon [id number] IOL Power: + 20.0 diopters IOL Serial Number: [id number] Optic Diameter: 6.0mm Haptic/Overall Diameter: 13.0mm PHACO INFO: Mukesh Centurion Vision System with OZil and Active Fluidics Cumulative Dispersed Energy (CDE): 26.21 seconds SURGEON: Artemio Morales MD, PABLO ANESTHESIA: Monitored Anesthesia Care (MAC), with local sub-tenon's anesthetic infiltration COMPLICATIONS: None SPECIMENS: None INDICATIONS FOR PROCEDURE: The patient is a 66-year-old lady with history of diminished visual acuity in her right eye. She is noted to have a dense nuclear/posterior subcapsular cataract in the right eye. The option of cataract surgery with the patient and she wished to proceed. PROCEDURE: The correct surgical eye was identified and marked as the right eye and the pupil was dilated in the preoperative area using mydriatics and cycloplegics. The dilated pupil size was 7.0 mm. She elected to proceed without oral sedation. The patient was brought to the operating room where cardiopulmonary monitoring was instituted and surgical time-out was performed, confirming the correct operative eye and IOL power. Topical anesthesia was administered and ophthalmic povidone-iodine 5% was instilled into the conjunctival fornices. Lidocaine gel was applied to the cornea and the irene-ocular area was prepped with Betadine 10% solution and draped in the usual sterile fashion for intraocular surgery, including an aperture drape. A Tegaderm transparent film dressing was cut in half and used to cover the lashes and lid margins. Care was taken to sequester the lashes and lid margins under the Tegaderm dressing. A lid speculum was placed between the lids of the operative eye and theoperating microscope was maneuvered into position. Ge scissors were then used to make a conjunctival buttonhole approximately 6mm posterior to the limbus in the inferonasal quadrant. Blunt dissection was carried out to expose bare sclera, and a blunt-tipped sub-tenon?s anesthesia cannula was introduced and passed posteriorly along the globe where non-preser erik plain lidocaine was injected into posterior sub-Tenon?s space. A sideport knife was used to make a paracentesis port inferiortemporally. Air was injected into the anterior chamber, followed by VisionBlue. phenylephrine/lidocaine was injected into the anterior chamber. The anterior chamber was then filled with viscoelastic. A 2.4mm keratome knife was used to create a half-thickness groove at the limbus and then to construct a three-plane near-clear corneal tunnel extending 2.0mm into clear cornea in the superiortemporal position. . A flap was raised on the anterior capsule and capsulorhexis forceps were used to complete a continuous curvilinear capsulorhexis of 5.0 mm. Balanced salt solution was then used to perform cortical cleaving hydrodissection and nuclear hydrodelineation until the lens could be freely rotated within the capsular bag. The lens nucleus was then disassembled and removed within the capsular bag and iris plane using phacoemulsification. Residual cortical material was removed using the I/A handpiece. The posterior capsule was carefully polished to remove as much residual lens epithelial cells as safely possible. The capsular bag was then inflated and the anterior chamber deepened with viscoelastic. The lens implant described above was inserted into the capsular bag using the Mukesh Autonome Injector. A Kuglen hook was used to dial the IOL into position. Residual viscoelastic was then removed first from posterior to the IOL, then from the anterior chamber using the I/A handpiece. The lens implant was noted to center nicely within the capsular bag. The incisions were stromally hydrated, and the anterior chamber was reformed using BSS. Then 0.5cc of moxifloxacin 1.0mg/ml were injected into the capsular bag and anterior chamber. The incis ions were checked with a Weck spear and found to be secure. Several drops of ophthalmic povidone-iodine 5% were then applied to the eye followed by two drops of Imprimis combination prednisolone/moxifloxacin/nepafenac solution. The drapes were removed and a clear plastic protective eye shield was placed over the eye. The patient was then returned to Same Day Surgery in stable condition.
--- NOTE | 2022-01-03 10:30 | W.ANESPOSTOP ---
Postoperative Evaluation Date, Time and Location Date Performed: 01/03/22 Time Performed: 10:30 Patient Location: Day Surgery Unit Vital Signs Most Recent Imported Vital Signs: Most Recent Vital Signs Temp Pulse Resp BP Pulse Ox 37.0 C 78 16 138/61 97 01/03/22 10:19 01/03/22 10:19 01/03/22 10:19 01/03/22 10:19 01/03/22 10:19 Pain Score Most Recent Pain Score: Most Recent Pain Score Pain Level 0 01/03/22 10:19 Assessment Mental Status: Awake (Alert & Oriented to Patient Baseline) Airway and Respiratory Function: Patent airway with normal (patient baseline) respiratory exam Cardiovascular Function: Hemodynamically Stable Hydration Status: Adequately Hydrated Nausea & Vomiting: No Nausea or Vomiting Pain: Pt. Denies Any Pain Peripheral Nerve Block: Patient did not receive a nerve block
== END 2022-01-03 10:42 | disposition home or self-care (01) ==
PROVIDERS: PCP Internal Medicine; Visit Provider Ophthalmology
PROC: (CPT 66984; principal; 2022-01-03 10:30)
DX: H25.041 Posterior subcapsular polar age-related cataract, right eye (principal); R73.03 Prediabetes; K22.2 Esophageal obstruction; E03.9 Hypothyroidism, unspecified
CPT/HCPCS: 66984; V2632

== ENCOUNTER 2022-01-14 01:47 | Outpatient (CLI) | payer OTHER, SELFPAY ==
[2022-01-14 12:09] LABS: Source Nasal/Nares
[2022-01-14 14:55] LABS: COVID-19 PCR Negative (Negative)
== END 2022-01-14 01:48 | disposition home or self-care (01) ==
LOC: LBO 01:47
PROVIDERS: PCP Internal Medicine; Visit Provider Ophthalmology
DX: Z20.822 Contact with and (suspected) exposure to COVID-19 (principal)
CPT/HCPCS: 87635; U0005

== ENCOUNTER 2022-01-17 06:49 | Day surgery (SDC) | payer OTHER, SELFPAY ==
[2022-01-17] MEDS: Tropicam./Phenyleph. (1/2.5%) 5 ML BTL OS ×3 (07:25→07:35)
[2022-01-17 07:26] VITALS: BP 117/77; PULSE 74; RESP 16; TEMP 36.4; O2SAT 94
--- NOTE | 2022-01-17 07:43 | ANES.PREOP_ITS ---
General Info Date of Service Date Performed: 01/17/22 Height: 5 ft 3 in Weight: 135 kg Body Mass Index (BMI): 52.7 Surgical Procedure: Operation Date: 01/17/22 08:40 Proposed Procedure Side Surgeon p Cataract Extraction with IOL Implant Left Artemio Morales MD Meds Allergies and Home Medications Allergies Allergy/AdvReac Type Severity Reaction Status Date / Time Sulfa (Sulfonamide Allergy Mild rash Verified 01/17/22 07:21 Antibiotics) morphine AdvReac Severe nausea, Verified 01/17/22 07:21 vomiting diarrhea Home Medication Medication Instructions Recorded Aleve 220 mg tablet (naproxen 220 mg PO PRN NS 02/15/13 sodium) Daily Multi-Vitamin (multivitamin) 1 ea PO DAILY NS 02/15/13 omeprazole 20 mg capsule,delayed 20 mg PO DAILY 06/22/15 release magnesium oxide 400 mg (241.3 mg 400 mg PO DAILY #30 tab 08/13/16 magnesium) tablet acetaminophen 500 mg tablet (Mapap 1,000 mg PO PRN PRN 07/11/17 Extra Strength) cholecalciferol (vitamin D3) 25 1,000 unit PO DAILY 05/02/19 mcg (1,000 unit) capsule ibuprofen 200 mg capsule 800 mg PO Q6H PRN cap 06/27/19 ibuprofen 800 mg tablet 800 mg PO TID #30 tab 08/02/19 gabapentin 100 mg capsule 100 mg PO DAILY 12/30/21 metformin 500 mg tablet 1,000 mg PO BID 12/30/21 sertraline 25 mg tablet 25 mg PO DAILY 12/30/21 atorvastatin 20 mg tablet 20 mg PO DAILY 01/03/22 levothyroxine 150 mcg tablet 150 mcg PO DAILY 01/03/22 Current Visit Medications: Current Medications Generic Name Dose Route Start Last Admin Trade Name Freq PRN Reason Stop Dose Admin Acetaminophen 1,000 mg 01/17/22 06:00 Acetaminophen 500 Mg Tab PO Q4H PRN PRN Miscellaneous Medication 0 ml 01/17/22 06:00 Prednisolone 1%, Moxifloxacin 0.5%, Nepafenac 0.1% 5ml Btl OS DIRECTED [facility] Miscellaneous Medication 0 ml 01/17/22 06:00 01/17/22 07:35 Tropicam./Phenyleph. (1/2.5%) 5 Ml Btl OS 1 drp DIRECTED JEFF Administration Tetracaine HCl 0 ml 01/17/22 06:00 Tetracaine 0.5% 4 Ml Btl OS DIRECTED JEFF PFSH Active Problems Active Problems: Problem Status Onset Code Primary osteoarthritis of right knee M17.11 Hx of gastroesophageal reflux (GERD) Z87.19 Status post total knee replacement, right Z96.651 Nuclear sclerotic cataract of right eye H25.11 Posterior subcapsular age-related cataract, right eye H25.041 Medical History Medical History Anemia Binge eating disorder Cellulitis of left leg Depression Esophageal ring Heart murmur Hypothyroidism Osteoarthritis Prediabetes Sleep apnea Streptococcal bacteremia Surgical History Surgical History (Updated 01/17/22 @ 07:20 by Alba Alicia) History of arthroplasty of left knee History of open reduction and internal fixation (ORIF) procedure Right wrist Hx of cataract surgery Hx of cholecystectomy Hx of hysterectomy Hx of thyroidectomy Hx of vein stripping Tobacco Smoking/Tobacco Use Status: Never Alcohol Alcohol Intake: former Substance Use Substance use: Never Substance use type: does not use Vital Signs and Lab Results Vital Signs Most Recent Vital Signs in EMR: Most Recent Vital Signs Temp Pulse Resp BP Pulse Ox 36.4 C L 74 16 117/77 94 01/17/22 07:26 01/17/22 07:26 01/17/22 07:26 01/17/22 07:26 01/17/22 07:26 Point of Care Results Point of Care Results: Finger Stick Blood Glucose 109 01/17/22 07:26 Lab Results Blood Type / Crossmatch: No Data to Display Complete Blood Count: White Blood Count 7.60 10^3/uL (4.4-10.8) 12/22/21 12:38 12/22/21 Red Blood Count 4.68 10^6/uL (3.93-5.22) 12/22/21 12:38 12/22/21 Hemoglobin 12.9 g/dL (11.2-15.7) 12/22/21 12:38 12/22/21 Hematocrit 41.3 % (36.0-46.0) 12/22/21 12:38 12/22/21 Platelet Count 228 10^3/uL (130-400) 12/22/21 12:38 12/22/21 Complete Metabolic Panel: Sodium Level 141 mmol/L (136-145) 12/22/21 12:38 12/22/21 Potassium Level 4.6 mmol/L (3.5-5.1) 12/22/21 12:38 12/22/21 Chloride Level 104 mmol/L (98-107) 12/22/21 12:38 12/22/21 Carbon Dioxide Level 28.5 mmol/L (21.0-32.0) 12/22/21 12:38 12/22/21 Blood Urea Nitrogen 22 mg/dL (7-18) H 12/22/21 12:38 12/22/21 Creatinine 0.9 mg/dL (0.55-1.02) 12/22/21 12:38 12/22/21 Estimated GFR/1.73 m2 >= 60.00 (mL/min/1.73m2) 12/22/21 12:38 12/22/21 Calcium Level 9.5 mg/dL (8.5-10.1) 12/22/21 12:38 12/22/21 Glucose Level 93 mg/dL (74-106) 12/22/21 12:38 12/22/21 Liver Function Panel: Alanine Aminotransferase (ALT/SGPT) 33 U/L (14-59) 12/22/21 12:38 12/22/21 Aspartate Amino Transf (AST/SGOT) 24 U/L (15-37) 12/22/21 12:38 12/22/21 Coagulation Panel: No Data to Display Cardiac Panel: No Data to Display Arterial Blood Gas: No Data to Display Venous Blood Gas: No Data to Display Pancreas Panel: No Data to Display Thyroid Panel: Thyroid Stimulating Hormone (TSH) 0.12 uIU/mL (0.36-3.74) L 12/22/21 12:38 12/22/21 Infectious Disease: Coronavirus (COVID-19)(PCR) Negative (Negative) 01/14/22 11:02 01/14/22 Coronavirus 2019 Source Nasal/Nares 01/14/22 11:02 01/14/22 Blood Cultures: No Data to Display Toxicology Panel: No Data to Display Imaging and Studies Imaging and Studies Study information below may be from another EMR and interpreted by another provider. Please see original notes in EMR for more complete details. Echocardiogram Summary: Date of Exam: 10/19/21Sex: F Admission Date: 10/19/21 : 1955 Age: 66 Indications: Heart murmur Conclusion Borderline concentric left ventricular hypertrophy. Normal left ventricular chamber size estimated ejection fraction is 55 to 60%. Wall motion is normal Normal right ventricular size and systolic function Both atria are normal in size There are no structural valvular abnormalities Trace aortic, mitral, regurgitation. Mild tricuspid regurgitation. Estimated right ventricular systolic pressure is 36 mmHg Wall motion Left Ventricle The left ventricle is normal size. The left ventricular systolic function is normal. The left ventricular ejection fraction is within the normal range. Borderline concentric left ventricular hypertrophy. There is normal LV segmental wall motion. There is no ventricular septal defect visualized. LVEF is 58%. Right Ventricle The right ventricle is normal size. The right ventricular systolic function is normal Atria The left atrium size is normal. The right atrium size is normal. The interatrial septum is intact with no evidence for an atrial septal defect. Aortic Valve The aortic valve is normal in structure. Aortic valve is trileaflet. There is no aortic valvular stenosis. Trace aortic regurgitation. Mitral Valve The mitral valve is normal in structure.. No evidence of mitral valve stenosis. Trace mitral regurgitation. Tricuspid Valve The tricuspid valve is normal in structure. There is no tricuspid valve stenosis. Mild tricuspid regurgitation. Pulmonic Valve Pulmonic valve is not well visualized. There is no pulmonic valvular stenosis. There is no pulmonic valvular regurgitation. Great Vessels The aortic root is normal in size. Ascending aorta is not well visualized. Aortic arch is normal in caliber. IVC is normal in size and collapses >50% with inspiration. Pericardium There is no pericardial effusion. Anesthesia Assessment and Plan Anesthesia History Personal History: No History of Anesthesia Complications Family History: No Family History of Anesthesia Complications Exercise Tolerance Exercise Tolerance: Metabolic Equivalents>4 Pertinent Negatives Pertinent Negatives: No Symptoms of GERD, No Major Cardiovascular Symptoms or Complaints, No Major Pulmonary Symptoms or Complaints (BRADEN Wears CPAP) and No History of CVA/TIA Cardiac & Pulmonary Exam Cardiac Exam: Normal S1/S2 Heart Sounds Pulmonary Exam: Clear Bilateral Breath Sounds Implantable Cardiac Device Does patient have a Pacemaker or an ICD?: No Airway Exam Known Difficult Airway: No Mallampati Class: 2 Mouth Opening: Normal (> 3cm) Thyromental Distance: Greater than 3 cm Neck Range of Motion: Full ROM Neck Circumference: Normal Teeth Condition: Normal Dentition ASA Classification ASA Score: ASA 2 Emergency Case?: No NPO Status NPO Status: NPO Clears >2 hours, Solids >8 hours Anesthesia Plan Resuscitation Status: Full Code Anesthesia Technique: MAC Anesthesia Airway Planned: Natural Airway Monitors Used: Standard Monitors
[2022-01-17 08:01] VITALS: BMI 52.7
[2022-01-17] MEDS: Tetracaine 0.5% 4 ML BTL OS (08:11)
[2022-01-17] MEDS: Povidone-Iodine Ophth 30 ML BTL (08:11)
[2022-01-17] MEDS: Lidocaine 2% Jelly 6 ML SYR (08:12)
[2022-01-17] MEDS: Balanced Salt Soln.-PLUS 500 ML BAG (08:18)
[2022-01-17] MEDS: Duovisc Viscoelastic System EACH 1 EACH (08:19)
[2022-01-17 08:37] VITALS: BP 129/77; PULSE 72; RESP 16; TEMP 36.4; O2SAT 95
--- NOTE | 2022-01-17 08:39 | W.PM.DSUDISC ---
Discharge Plan Disposition Patient Disposition: HOME Condition: Good Discharge Details Attending Provider: Artemio Morales Primary Care Provider: Onel Reynoso Home Meds and New Rx's Prescriptions: No Action ibuprofen 200 mg capsule 800 mg PO Q6H PRN0RF cholecalciferol (vitamin D3) 1,000 unit capsule 1,000 unit PO DAILY 0RF multivitamin [Daily Multi-Vitamin] 1 EACH tablet 1 ea PO DAILY 0RF naproxen sodium [Aleve] 220 MG tablet 220 mg PO PRN 0RF omeprazole 20 MG capsule,delayed release(DR/EC) 20 mg PO DAILY 0RF magnesium oxide 400 MG tablet 400 mg PO DAILY Qty: 30 0RF acetaminophen [Mapap Extra Strength] 500 MG tablet 1,000 mg PO PRN PRN0RF ibuprofen 800 mg tablet 800 mg PO TID Qty: 30 0RF metformin 500 mg tablet 1,000 mg PO BID 0RF Label Comments: Take 1 tablet by mouth as directed week 1- 1 tab every night, week 2 1 tab BID, week 3- 1 tab in the am and 2 tabs PM, week 4- 2 tablets BID sertraline 25 mg tablet 25 mg PO DAILY 0RF Label Comments: TAKE 1 TABLET BY MOUTH DAILY gabapentin 100 mg capsule 100 mg PO DAILY 0RF Label Comments: TAKE 1 CAPSULE BY MOUTH EVERY DAY. MAY ADD A DOSE AT BEDTIME IF MEDICATION IS HELPFUL atorvastatin 20 mg tablet 20 mg PO DAILY 0RF Label Comments: TAKE 1 TABLET BY MOUTH EVERY DAY levothyroxine 150 mcg tablet 150 mcg PO DAILY 0RF Label Comments: TAKE 1 TABLET BY MOUTH EVERY DAY Discharge Instructions Stand Alone Forms: Post-op Topical [place] (DSU) Discharge Orders Discharge Orders: Discharge Order (Routine); Ordered 01/17/22 Ordered By: Artemio Morales DS: Diagnosis Discharge Diagnosis (1) Nuclear sclerotic cataract of left eye: Status: Resolved (2) Posterior subcapsular age-related cataract of left eye: Status: Resolved
--- NOTE | 2022-01-17 08:40 | ROE_ITS ---
Date of service: 01/17/22 Time of Service: 08:41 Operative Note Operative Note DATE OF PROCEDURE: 01/17/22 PRE-OP DIAGNOSIS: Nuclear/posterior subcapsular cataract, left eye POST-OP DIAGNOSIS: same PROCEDURE: Cataract extraction using phacoemulsification with intraocular lens implant, left eye SURGEON: Artemio Morales ANESTHESIA TYPE: Local By Surgeon and MAC Refer to Anesthesia Record PATHOLOGY: none sent COMPLICATIONS: None Patient was transported to: same day Patient's condition: stable Implants: Harrison and Harrison / [employer] Tecnis [id number] Indications: Progressive decreased vision due to cataract, left eye Procedure Description: CATARACT SURGERY OPERATIVE REPORT PREOPERATIVE DIAGNOSIS: 1. Nuclear/posterior subcapsular cataract, left eye POSTOPERATIVE DIAGNOSIS: Same OPERATION: 1. Cataract extraction using phacoemulsification with posterior chamber intraocular lens implant, left eye. IOL: IOL Salesperson Women'S Hats/Model: Harrison & Harrison / OBI Tecnis [id number] IOL Power: + 20.0 diopters IOL Serial Number: [id number] Optic Diameter: 6.0 mm Haptic/Overall Diameter: 13.0 mm PHACO INFO: Mukesh MDconnectMEurion Vision System with OZil and Active Fluidics Cumulative Dispersed Energy (CDE): 11.19 seconds SURGEON: Artemio Morales MD, PABLO ANESTHESIA: Monitored A [facility] (MAC), with local sub-tenon's anesthetic infiltration COMPLICATIONS: None SPECIMENS: None INDICATIONS FOR PROCEDURE: The patient is a 66-year-old lady with history of diminished visual acuity in both eyes secondary to the development of bilateral nuclear and posterior subcapsular cataract. She had a very dense nuclear and posterior subcapsular cataract in the right eye, and has already undergone surgery there. She now presents for cataract surgery in the left eye. PROCEDURE: The correct surgical eye was identified and marked as the left eye and the pupil was dilated in the preoperative area using mydriatics and cycloplegics. The dilated pupil size was 8.0 mm. She elected to proceed without oral sedation. The patient was brought to the operating room where cardiopulmonary monitoring was instituted and surgical time-out was performed, confirming the correct operative eye and IOL power. Topical anesthesia was administered and ophthalmic povidone-iodine 5% was instilled into the conjunctival fornices. Lidocaine gel was applied to the cornea and the irene-ocular area was prepped with Betadine 10% solution and draped in the usual sterile fashion for intraocular surgery, including an aperture drape. A Tegaderm transparent film dressing was cut in half and used to cover the lashes and lid margins. Care was taken to sequester the lashes and lid margins under the Tegaderm dressing. A lid speculum was placed between the lids of the operative eye and the Mukesh LuxOR Revalia operating microscope was maneuvered into position. Ge scissors were then used to make a conjunctival buttonhole approximately 6mm posterior to the limbus in the inferonasal quadrant. Blunt dissection was carried out to expose bare sclera, and a blunt-tipped sub-tenon?s anesthesia cannula was introduced and passed posteriorly along the globe where non- preserved plain lidocaine was injected into posterior sub-Tenon?s space. A sideport knife was used to make a paracentesis port superiorly/superiortemporally. Intraocular phenylephrine/lidocaine was injected int the anterior chamber.. The anterior chamber was filled with viscoelastic. A 2.4mm keratome knife was used to create a half-thickness groove at the limbus and then to construct a three-plane near-clear corneal tunnel extending 2.0mm into clear cornea at the 3:00 position. A flap was raised on the anterior capsule and capsulorhexis forceps were used to complete a continuous curvilinear capsulorhexis of 5.5 mm. Balanced salt solution was then used to perform cortical cleaving hydrodissection and nuclear hydrodelineation until the lens could be freely rotated within the capsular bag. The lens nucleus was then disassembled and rem ted within the capsular bag and iris plane using phacoemulsification. Residual cortical material was removed using the 45-degree angled silicone I/A tip with 0.3mm port. The posterior capsule was carefully polished to remove as much residual lens epithelial cells as safely possible. The capsular bag was then inflated and the anterior chamber deepened with viscoelastic. The lens implant described above was inserted into the capsular bag using the OBI [place] Injector. A Kuglen hook was used to dial the IOL into position. Residual viscoelastic was then removed first from posterior to the IOL, then from the anterior chamber using the I/A handpiece. The lens implant was noted to center nicely within the capsular bag. The incisions were stromally hydrated, and the anterior chamber was reformed using BSS. Then 0.5cc of moxifloxacin 1.0mg/ml were injected into the capsular bag and anterior chamber. The incisions were checked with a Weck spear and found to be secure. Several drops of ophthalmic povidone-iodine 5% were then applied to the eye followed by two drops of Imprimis combination prednisolone/moxifloxacin/nepafenac solution. The drapes were removed and a clear plastic protective eye shield was placed over the eye. The patient was then returned to Same Day Surgery in stable condition.
--- NOTE | 2022-01-17 08:40 | W.ANESPOSTOP ---
Postoperative Evaluation Date, Time and Location Date Performed: 01/17/22 Time Performed: 08:40 Patient Location: Day Surgery Unit Vital Signs Most Recent Imported Vital Signs: Most Recent Vital Signs Temp Pulse Resp BP Pulse Ox 36.4 C L 74 16 117/77 94 01/17/22 07:26 01/17/22 07:26 01/17/22 07:26 01/17/22 07:26 01/17/22 07:26 Most Recent Manually Entered Vital Signs: Adult Blood Pressure: 129/77 Heart Rate: 73 Respirations: 10 Oxygen Saturation (%): 98 Temperature (C): 36.3 C Pain Score (0-10 Scale): 0 Pain Score Most Recent Pain Score: Most Recent Pain Score Pain Level 0 01/17/22 07:26 Assessment Mental Status: Awake (Alert & Oriented to Patient Baseline) Airway and Respiratory Function: Patent airway with normal (patient baseline) respiratory exam Cardiovascular Function: Hemodynamically Stable Hydration Status: Adequately Hydrated Nausea & Vomiting: No Nausea or Vomiting Pain: Pt. Denies Any Pain Peripheral Nerve Block: Patient did not receive a nerve block
[2022-01-17 08:41] VITALS: BP 129/77; PULSE 73; RESP 10; TEMPC 36.3; O2SAT 98
== END 2022-01-17 09:05 | disposition home or self-care (01) ==
PROVIDERS: PCP Internal Medicine; Visit Provider Ophthalmology
PROC: (CPT 66984; principal; 2022-01-17 08:30)
DX: H25.042 Posterior subcapsular polar age-related cataract, left eye (principal); R73.03 Prediabetes; D64.9 Anemia, unspecified; K22.2 Esophageal obstruction
CPT/HCPCS: 66984; V2632

== ENCOUNTER 2022-02-10 16:27 | Outpatient (REF) | payer OTHER, SELFPAY ==
[2022-02-10 20:39] LABS: TSH (W/Ref FT4) 1.92 uIU/mL (0.36-3.74)
== END 2022-02-10 16:28 | disposition home or self-care (01) ==
LOC: NCHCN 16:27
PROVIDERS: PCP Internal Medicine; Visit Provider Nurse Practitioner Family
DX: E03.9 Hypothyroidism, unspecified (principal)
CPT/HCPCS: 84443

== ENCOUNTER 2023-01-10 12:28 | Outpatient (REF) | payer OTHER, SELFPAY ==
[2023-01-10 15:27] LABS: HCT 40.5 % (36.0-46.0); HGB 12.8 g/dL (11.2-15.7); MCH 26.9 pg (27.0-33.0); MCHC 31.6 % (32.0-36.0); MCV 85 fL (80-95); Platelet Count 213 10^3/uL (130-400); RBC 4.75 10^6/uL (3.93-5.22); RDW 14.8 % (11.7-14.6); RDW-SD 46.3 fL; WBC 6.03 10^3/uL (4.4-10.8)
[2023-01-10 15:40] LABS: Iron 64 ug/dL (50-170); Total Iron Binding Capacity 355 ug/dL (250-450); Transferrin Sat 18 % (15-50)
[2023-01-10 15:41] LABS: Hemoglobin A1C 5.8 % (<5.7)
[2023-01-10 15:47] LABS: ALT 20 U/L (14-59); AST 15 U/L (15-37); Albumin 3.6 g/dL (3.4-5.0); Alkaline Phosphatase 107 U/L (46-116); Anion Gap 6.5 mmol/L (3-11); BUN 15 mg/dL (7-18); Bilirubin, Total 0.4 mg/dL (0.2-1.0); CO2 31.5 mmol/L (21.0-32.0); CREATININE 0.8 mg/dL (0.55-1.02); Calcium 9.7 mg/dL (8.5-10.1); Calculated LDL 55 mg/dL (<100); Chloride 106 mmol/L (98-107); Cholesterol 143 mg/dL (<200); Estimated GFR 80.21 (mL/min/1.73m2); Glucose 78 mg/dL (74-106); HDL Cholesterol 78 mg/dL (40-60); Potassium 4.5 mmol/L (3.5-5.1); Sodium 144 mmol/L (136-145); TSH (W/Ref FT4) 2.37 uIU/mL (0.36-3.74); Total Protein 6.9 g/dL (6.4-8.2); Triglyceride 52 mg/dL (<150)
== END 2023-01-10 12:29 | disposition home or self-care (01) ==
LOC: NCHCN 12:28
PROVIDERS: PCP Internal Medicine; Visit Provider Nurse Practitioner Family
DX: E03.9 Hypothyroidism, unspecified (principal); R73.03 Prediabetes; Z86.2 Personal history of diseases of the blood and blood-forming organs and certain disorders involving the immune mechanism; E78.5 Hyperlipidemia, unspecified
CPT/HCPCS: 80053; 80061; 85027; 83036; 83540; 83550; 84443

== ENCOUNTER 2023-04-04 11:12 | Outpatient (CLI) | payer OTHER, SELFPAY ==
--- NOTE | 2023-04-04 13:45 | DI.RAD_ITS ---
Exam(s) XR KNEE LT 3V AP,LAT,ASHISH EXAM: XR KNEE LT 3V AP,LAT,ASHISH CLINICAL HISTORY: LEFT KNEE PAIN M25.562. TECHNIQUE: 2D digital imaging was performed. Three images were obtained. AP, PA tunnel and lateral views were obtained. COMPARISON: CR LEFT TIB/FIB from 08/11/2016 CR XR TIB/FIB LT from 12/04/2020 FINDINGS: BONES: There are stable post operative changes present. No fracture or dislocation. JOINTS: The orthopedic hardware is in good position. No evidence of hardware loosening. SOFT TISSUE: Normal. IMPRESSION: Stable postoperative changes. DATA REPOSITORY: RADIATION DOSE DELIVERED:
== END 2023-04-04 11:32 ==
LOC: DI 11:12
PROVIDERS: PCP Internal Medicine; Visit Provider Family Medicine
DX: M25.562 Pain in left knee (principal); Z47.1 Aftercare following joint replacement surgery
CPT/HCPCS: 73562

== ENCOUNTER → 2023-06-21 00:56 | Outpatient (CLI) | payer OTHER, SELFPAY ==
--- NOTE | 2023-06-21 | DI.US_ITS ---
Exam(s) US LOWER EXTREMITY VENOUS RT EXAM: US LOWER EXTREMITY VENOUS RT CLINICAL HISTORY: RT LEG PAIN, M79.604, ? DVT. TECHNIQUE: Lower extremity venous ultrasound performed using grayscale, color-flow, and spectral Do ppler analysis. COMPARISON: No exams were available for comparison FINDINGS: The common femoral, femoral and popliteal veins demonstrate normal compressibility, augmentation, and color Doppler. The posterior tibial veins are patent. There is a palpable area in the anterior mid calf which corresponds to a varicose vein with a focal thrombosis. This appears to be a branch off o f the greater saphenous vein.. No hematoma or Carbone's cyst is seen. IMPRESSION: Small focal thrombus within a varicose vein in the anterior mid calf. No evidence of DVT. DATA REPOSITORY:
== END ==
PROVIDERS: PCP Internal Medicine; Visit Provider Nurse Practitioner Family
DX: M79.604 Pain in right leg (principal); I82.890 Acute embolism and thrombosis of other specified veins
CPT/HCPCS: 93971

== ENCOUNTER → 2023-06-26 02:15 | Outpatient (CLI) | payer OTHER, SELFPAY ==
--- NOTE | 2023-06-26 15:15 | DI.MAMMO_ITS ---
Exam(s) MAMMO SCREENING EXAM: MAMMO SCREENING CLINICAL HISTORY: SCREENING, Z12.39. TECHNIQUE: Bilateral full field digital CC and MLO mammographic images were obtained with 3D tomosyn thesis and utilizing computer aided detection (CAD). COMPARISON: Prior mammograms were reviewed. FINDINGS: There has been no significant change in the appearance and distribution of the fibroglandular tissue. There are no new spiculated masses nor malignant appearing microcalcification groups. There is no significant architectural distortion nor skin thickening-retraction. IMPRESSION: No radiographic evidence of malignancy. BI-RADS Category 1 - Negative Breast Density - Category A - Almost entirely fatty Breast density Category C or D implies that the patient has dense breast tissue. Dense breast tissue can make it harder to find cancer on a mammogram. Dense breast tissue is also associated with an incr eased risk of breast cancer. This information about the result of the mammogram report was provided to the patient to raise their awareness. Use this report when you speak with the patient about their risks for breast cancer, which includes their family history. At that time, you may recommend additional screening tests (Ultrasoun d or MRI) as these tests may add significant information. A negative radiographic report should not delay biopsy if a dominant or clinically suspicious mass is present. Up to ten percent of cancers are not identified on mammography. A negative report may reinforce clinical impression. Adenosis and dense breasts may obscure an underlying neoplasm. False positive reports average 6 to 10%. Patient will receive a letter notifying them of these results.
== END ==
PROVIDERS: PCP Internal Medicine; Visit Provider Nurse Practitioner Family
DX: Z12.31 Encounter for screening mammogram for malignant neoplasm of breast (principal)
CPT/HCPCS: 77063; 77067

== ENCOUNTER 2023-12-27 16:11 | Outpatient (REF) | payer OTHER, SELFPAY ==
[2023-12-27 21:20] LABS: HCT 38.8 % (36.0-46.0); HGB 12.1 g/dL (11.2-15.7); MCH 26.7 pg (27.0-33.0); MCHC 31.2 % (32.0-36.0); MCV 86 fL (80-95); MPV 10.4 fL (8.0-11.0); Platelet Count 224 10^3/uL (130-400); RBC 4.53 10^6/uL (3.93-5.22); RDW-SD 47.1 fL; WBC 6.27 10^3/uL (4.4-10.8)
[2023-12-27 21:34] LABS: Hemoglobin A1C 5.8 % (<5.7)
[2023-12-27 21:48] LABS: Iron 43 ug/dL (50-170); Total Iron Binding Capacity 363 ug/dL (250-450); Transferrin Sat 12 % (15-50)
[2023-12-27 21:57] LABS: ALT 20 U/L (14-59); AST 15 U/L (15-37); Albumin 3.4 g/dL (3.4-5.0); Alkaline Phosphatase 101 U/L (46-116); BUN 18 mg/dL (7-18); Bilirubin, Total 0.3 mg/dL (0.2-1.0); CREATININE 0.9 mg/dL (0.55-1.02); Calcium 9.5 mg/dL (8.5-10.1); Calculated LDL 65 mg/dL (<100); Chloride 104 mmol/L (98-107); Cholesterol 147 mg/dL (<200); Ferritin 33 ng/mL (8-252); Glucose 95 mg/dL (74-106); HDL Cholesterol 69 mg/dL (40-60); Potassium 4.3 mmol/L (3.5-5.1); Sodium 144 mmol/L (136-145); Total Protein 6.8 g/dL (6.4-8.2); Triglyceride 65 mg/dL (<150)
== END 2023-12-27 16:12 | disposition home or self-care (01) ==
LOC: NCHCN 16:11
PROVIDERS: PCP Internal Medicine; Referring Provider Nurse Practitioner Family; Visit Provider Nurse Practitioner Family
DX: E03.9 Hypothyroidism, unspecified (principal); R73.03 Prediabetes
CPT/HCPCS: 80053; 80061; 85027; 82728; 83036; 83540; 83550; 84443

== ENCOUNTER 2024-07-01 01:56 | Outpatient (CLI) | payer OTHER, SELFPAY ==
--- NOTE | 2024-07-01 | DI.MAMMO_ITS ---
Exam(s) MAMMO SCREENING EXAM: MAMMO SCREENING CLINICAL HISTORY: Screening, Z12.31 TECHNIQUE: Mammograms were interpreted according to the usual protocol including computer analysis w [employer] CAD system, tomosynthesis and C-view imaging. COMPARISON: 2015 through 2022 FINDINGS: The breasts are composed of mainly fatty density , Breast Density category A. No suspicious masses or suspicious microcalcifications are seen. No skin thickening or abnormal axillary lymph nodes are seen. There has been no significant change from prior exams. IMPRESSION: BI-RADS Category 1, Negative mammogram Yearly screening mammography is recommended. Breast Density - Category A, fatty density. A negative radiographic report should not delay biopsy if a dominant or clinically suspicious mass is present. Up to ten percent of cancers are not identified on mammography. A negative report may reinforce clinical impression. Adenosis and dense breasts may obscure an underlying neoplasm. False positive reports average 6 to 10%. Patient will receive a letter notifying them of these results.
== END 2024-07-01 02:16 ==
LOC: DI 01:56
PROVIDERS: PCP Internal Medicine; Visit Provider Nurse Practitioner Family
DX: Z12.31 Encounter for screening mammogram for malignant neoplasm of breast (principal)
CPT/HCPCS: 77063; 77067

== ENCOUNTER 2024-07-02 15:38 | Outpatient (REF) | payer OTHER, SELFPAY ==
[2024-07-02 16:46] LABS: HCT 39.3 % (36.0-46.0); HGB 12.4 g/dL (11.2-15.7); MCH 27.8 pg (27.0-33.0); MCHC 31.6 % (32.0-36.0); MCV 88 fL (80-95); Platelet Count 186 10^3/uL (130-400); RBC 4.46 10^6/uL (3.93-5.22); RDW 15.9 % (11.7-14.6); RDW-SD 51.3 fL; WBC 5.37 10^3/uL (4.4-10.8)
[2024-07-02 17:54] LABS: Iron 54 ug/dL (50-170); Total Iron Binding Capacity 332 ug/dL (250-450); Transferrin Sat 16 % (15-50)
== END 2024-07-02 15:39 | disposition home or self-care (01) ==
LOC: NCHCN 15:38
PROVIDERS: PCP Nurse Practitioner Family; Visit Provider Nurse Practitioner Family
DX: E61.1 Iron deficiency (principal)
CPT/HCPCS: 85027; 83540; 83550

== ENCOUNTER 2024-07-11 01:29 | Outpatient (CLI) | payer OTHER, SELFPAY ==
--- NOTE | 2024-07-11 | DI.RAD_ITS ---
Exam(s) XR KNEE RT 3V AP,LAT,ASHISH EXAM: XR KNEE RT 3V AP,LAT,ASHISH CLINICAL HISTORY: M25.561 Pain RT knee. TECHNIQUE: 2D digital imaging was performed. Three views. COMPARISON: CR XR KNEE RT 2V AP,LAT from 08/19/2020 CR XR KNEE LT 3V AP,LAT,ASHISH from 04/04/2023 FINDINGS: BONES: No acute fracture is present. No bony destructive lesion is seen. Stable alignment of knee p rosthesis. No abnormal surrounding lucencies. JOINTS: The knee is normally aligned. No joint effusion is seen. SOFT TISSUE: Normal. IMPRESSION: Stable appearance of knee prosthesis DATA REPOSITORY: RADIATION DOSE DELIVERED:
--- NOTE | 2024-07-11 | DI.RAD_ITS ---
Exam(s) XR KNEE LT 3V AP,LAT,ASHISH EXAM: XR KNEE LT 3V AP,LAT,ASHISH CLINICAL HISTORY: M25.562 Pain LT knee. TECHNIQUE: 2D digital imaging was performed. Three views. COMPARISON: CR XR KNEE LT 3V AP,LAT,ASHISH from 04/04/2023 CR XR KNEE RT 3V AP,LAT,ASHISH from 07/11/2024 FINDINGS: BONES: No acute fracture is present. No bony destructive lesion is seen. No abnormal lucency aroun d the knee prosthesis. JOINTS: The knee prosthesis is normally aligned. No joint effusion is seen. SOFT TISSUE: Normal. IMPRESSION: Stable appearance of knee prosthesis. DATA REPOSITORY: RADIATION DOSE DELIVERED:
== END 2024-07-11 01:49 ==
LOC: DI 01:30
PROVIDERS: PCP Nurse Practitioner Family; Visit Provider Nurse Practitioner Family
DX: M25.561 Pain in right knee (principal); M25.562 Pain in left knee; Z96.653 Presence of artificial knee joint, bilateral
CPT/HCPCS: 73562

== ENCOUNTER → 2024-09-16 08:41 | Outpatient (BNVA) | payer OTHER, MEDICARE, SELFPAY | PROVIDERS: PCP Nurse Practitioner Family; Referring Provider Nurse Practitioner Family; Visit Provider Student in an Organized Health Care Education/Training Program | DX: M76.31 Iliotibial band syndrome, right leg (principal); Z96.651 Presence of right artificial knee joint; Z96.652 Presence of left artificial knee joint | CPT/HCPCS: 99203 ==

== ENCOUNTER 2025-01-07 11:36 | Outpatient (REF) | payer MEDICARE, SELFPAY ==
[2025-01-07 14:34] LABS: HGB 13.2 g/dL (11.2-15.7); MCH 27.1 pg (27.0-33.0); MCHC 30.7 % (32.0-36.0); MCV 88 fL (80-95); Platelet Count 176 10^3/uL (130-400); RBC 4.87 10^6/uL (3.93-5.22); RDW 15.2 % (11.7-14.6); RDW-SD 49.8 fL; WBC 5.15 10^3/uL (4.4-10.8)
[2025-01-07 14:51] LABS: Iron 69 ug/dL (50-170); Total Iron Binding Capacity 383 ug/dL (250-450); Transferrin Sat 18 % (15-50)
[2025-01-07 15:27] LABS: ALT 18 U/L (14-59); AST 16 U/L (15-37); Albumin 3.4 g/dL (3.4-5.0); Alkaline Phosphatase 106 U/L (46-116); Anion Gap 4.7 mmol/L (3-11); BUN 16 mg/dL (7-18); Bilirubin, Total 0.34 mg/dL (0.2-1.0); CO2 33.3 mmol/L (21.0-32.0); Calcium 9.5 mg/dL (8.5-10.1); Calculated LDL 60 mg/dL (<100); Chloride 106 mmol/L (98-107); Cholesterol 143 mg/dL (<200); Estimated GFR 60.61 (mL/min/1.73m2); Ferritin 31 ng/mL (8-252); Glucose 97 mg/dL (74-106); HDL Cholesterol 71 mg/dL (40-60); Potassium 4.5 mmol/L (3.5-5.1); Sodium 144 mmol/L (136-145); TSH (W/Ref FT4) 6.89 uIU/mL (0.36-3.74); Total Protein 6.9 g/dL (6.4-8.2); Triglyceride 64 mg/dL (<150)
[2025-01-07 17:08] LABS: FREE T4 1.33 ng/dL (0.76-1.46)
== END 2025-01-07 11:37 | disposition home or self-care (01) ==
LOC: NCHCN 11:36
PROVIDERS: PCP Nurse Practitioner Family; Visit Provider Nurse Practitioner Family
DX: R73.03 Prediabetes (principal); E78.5 Hyperlipidemia, unspecified; E03.9 Hypothyroidism, unspecified; Z86.2 Personal history of diseases of the blood and blood-forming organs and certain disorders involving the immune mechanism
CPT/HCPCS: 80053; 80061; 85027; 82728; 83036; 83540; 83550; 84439; 84443

== ENCOUNTER 2025-04-14 16:11 | Outpatient (REF) | payer MEDICARE, SELFPAY ==
[2025-04-14 15:09] LABS: TSH (W/Ref FT4) 3.24 uIU/mL (0.36-3.74)
== END 2025-04-14 16:12 | disposition home or self-care (01) ==
LOC: NCHCN 16:11
PROVIDERS: PCP Nurse Practitioner Family; Visit Provider Nurse Practitioner Family
DX: E03.9 Hypothyroidism, unspecified (principal)
CPT/HCPCS: 84443

== ENCOUNTER 2025-07-25 03:46 | Outpatient (CLI) | payer MEDICARE, SELFPAY ==
--- NOTE | 2025-07-25 | DI.MAMMO_ITS ---
Exam(s) MAMMO SCREENING EXAM: MAMMO SCREENING CLINICAL HISTORY: SCREENING MAMMO Z12.31. TECHNIQUE: Bilateral full field digital CC and MLO mammographic images were obtained with 3D tomosynthesis and utilizing computer aided detection (CAD). COMPARISON: Prior mammograms were reviewed. FINDINGS: There has been no significant change in the appearance and distribution of the fibroglandular tissue. No CAD designations. There are no new spiculated masses nor malignant appearing microcalcification groups. Skin mole on the inferior aspect of the left breast is again noted. There is no significant architectural distortion nor skin thickening-retraction. IMPRESSION: No radiographic evidence of malignancy. BI-RADS Category 1 - Negative Breast Density - Category B - There are scattered areas of fibroglandular density. Breast density Category C or D implies that the patient has dense breast tissue. Dense breast tissue can make it harder to find cancer on a mammogram. Dense breast tissue is also associated with an increased risk of breast cancer. This information about the result of the mammogram report was provided to the patient to raise their awareness. Use this report when you speak with the patient about their risks for breast cancer, which includes their family history. At that time, you may recommend additional screening tests (Ultrasound or MRI) as these tests may add significant information. A negative radiographic report should not delay biopsy if a dominant or clinically suspicious mass is present. Up to ten percent of cancers are not identified on mammography. A negative report may reinforce clinical impression. Adenosis and dense breasts may obscure an underlying neoplasm. False positive reports average 6 to 10%. Patient will receive a letter notifying them of these results.
== END 2025-07-25 04:06 ==
PROVIDERS: PCP Nurse Practitioner Family; Visit Provider Nurse Practitioner Family
DX: Z12.31 Encounter for screening mammogram for malignant neoplasm of breast (principal)
CPT/HCPCS: 77063; 77067